=== PATIENT | female | born 1950 | race Caucasian/White ===

== ENCOUNTER 2019-12-14 08:21 | Outpatient (CLI) | payer OTHER, SELFPAY ==
--- NOTE | ~2019-12-14 | CT_ITS ---
EXAMINATION: CT pelvis wo con EXAM DATE: 12/14/2019 09:10 INDICATION: Groin swelling for 4 weeks, pain. TECHNIQUE: Spiral CT pelvis wo con was performed without contrast. Axial, coronal and sagittal imag es were reviewed. The dose-length product (DLP) for this examination was 562.52 mGy-cm. The exposur e was tailored according to patient size (auto mA exposure control), and iterative reconstruction ( IR) was used as additional dose reduction technique. There is no prior study for comparison. FINDINGS: There is right hip gamma nail. There is partial osseous fusion of the fracture line. Image d portion of hardware is intact. No osseous erosion. There is small right hip joint effusion. There is right sacral subacute insufficiency fracture. Patient has had hysterectomy. Bladder is unrem arkable. There is moderate amount of nonspecific mesenteric and retroperitoneal fat stranding which i s new compared to previous exam. IMPRESSION: 1. Moderate nonspecific mesenteric fat stranding. 2. Subacute right sacral insufficiency fracture. 3. Surgically fixed right trochanteric fracture, incomplete osseous fusion. Small right hip joint ef fusion. Reviewed, dictated and finalized at location B. 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 Moderate nonspecific mesenteric fat stranding. 2. Subacute right sacral insufficiency fracture. 3. Surgically fixed right trochanteric fracture, incomplete osseous fusion. Sm all right hip joint effusion.
== END 2019-12-14 08:22 | disposition home or self-care (01) ==
PROVIDERS: PCP Internal Medicine; Visit Provider Internal Medicine
DX: R10.2 Pelvic and perineal pain (principal); S72.101D Unspecified trochanteric fracture of right femur, subsequent encounter for closed fracture with routine healing; X58.XXXD Exposure to other specified factors, subsequent encounter
CPT/HCPCS: 72192

== ENCOUNTER 2020-07-04 14:07 | Outpatient (CLI) | payer OTHER, SELFPAY ==
--- NOTE | 2020-07-04 14:49 | ECG_ITS ---
Measurements Intervals [place] Rate: 61 P: 55 AK: 207 QRS: 2 QRSD: 85 T: 40 QT: 373 QTc: 379 Interpretive Statements SINUS RHYTHM NORMAL ECG Electronically Signed On 07-04-2020 15:01:45 CDT by Luis Miguel Iverson D.O.
[2020-07-04 14:50] LABS: Anion Gap 7 mmol/L (8-16); Blood Urea Nitrogen 15 mg/dL (7-17); Calcium 9.1 mg/dL (8.4-10.2); Carbon Dioxide 29 mmol/L (22-30); Chloride 101 mmol/L (98-107); Estimated Glomerular Filt Rate > 60; Glucose 178 mg/dL (65-105); Potassium 4.2 mmol/L (3.4-5.0); Sodium 137 mmol/L (137-145)
== END 2020-07-04 14:08 | disposition home or self-care (01) ==
PROVIDERS: PCP Internal Medicine; Visit Provider Orthopaedic Surgery
DX: Z01.812 Encounter for preprocedural laboratory examination (principal); E11.9 Type 2 diabetes mellitus without complications; M65.30 Trigger finger, unspecified finger
CPT/HCPCS: 36415; 80048; 93005

== ENCOUNTER 2020-08-01 10:37 | Outpatient (CLI) | payer OTHER, SELFPAY ==
--- NOTE | ~2020-08-01 | MM_ITS ---
EXAMINATION: MM screening toni BI w parisa HISTORY: Screening mammogram TECHNIQUE: Craniocaudal and mediolateral oblique 3-D tomosynthesis images were obtained and synthetic 2-D images were generated. CAD analysis was submitted and interpreted. COMPARISON: 08/11/2018, 03/15/2012 bilateral digital screening mammogram examinations BREAST PARENCHYMAL COMPOSITION: There are scattered areas of fibroglandular density. FINDINGS: There is no evidence of suspicious mass, calcification, or architectural distortion to sugg est malignancy in either breast. There has been no suspicious interval change. IMPRESSION: 1. No mammographic evidence of malignancy. 2. Recommend routine screening mammography in one year. BI-RADS Category 1: Negative Reviewed, dictated and finalized at location A.
== END 2020-08-01 10:38 | disposition home or self-care (01) ==
LOC: ANHIMG 10:38
PROVIDERS: PCP Internal Medicine; Visit Provider Internal Medicine
DX: Z12.31 Encounter for screening mammogram for malignant neoplasm of breast (principal)
CPT/HCPCS: 77063; 77067

== ENCOUNTER 2020-08-01 15:42 | Outpatient (CLI) | payer OTHER, SELFPAY ==
--- NOTE | ~2020-08-01 | XR_ITS ---
EXAMINATION: XR tibia fibula RT 2V DATE: 08/01/2020 16:13 INDICATION: Right lower limb pain. TECHNIQUE: 2 views of right tibia and fibula were obtained. COMPARISON: None. FINDINGS: Bone alignment is normal. No fracture. There is diffuse osteopenia. There is plate and scre w fixation of distal femur. There is mild right knee osteoarthritis. IMPRESSION: 1. Mild right knee osteoarthritis. Reviewed, dictated and finalized at location A.
--- NOTE | ~2020-08-01 | XR_ITS ---
XR knee RT 3V 08/01/2020 16:13 Indication: Right knee pain Procedure: 3 views right knee Comparison: No prior studies for comparison. Findings: There is moderate tricompartment osteoarthritis. There is chondrocalcinosis. Osteopenia. Th ere is an intramedullary yazmin in the distal femur with 2 distal interlocking screws. Impression: 1: Moderate osteoarthritis of the right knee. Reviewed, dictated and finalized at location B. Impression: 1: Moderate osteoarthritis of the right knee.
== END 2020-08-01 15:43 | disposition home or self-care (01) ==
PROVIDERS: PCP Internal Medicine; Visit Provider Internal Medicine
DX: M17.11 Unilateral primary osteoarthritis, right knee (principal)
CPT/HCPCS: 73562; 73590

== ENCOUNTER 2020-10-24 02:16 | Outpatient (CLI) | payer OTHER, SELFPAY ==
[2020-10-24 18:46] LABS: SARS-CoV-2 RNA PCR Negative
== END 2020-10-24 02:17 | disposition home or self-care (01) ==
LOC: ANHCOVIDDT 02:16
PROVIDERS: PCP Internal Medicine; Visit Provider Internal Medicine Gastroenterology
DX: Z01.818 Encounter for other preprocedural examination (principal); Z20.828 Contact with and (suspected) exposure to other viral communicable diseases
CPT/HCPCS: 87635; C9803; U0003

== ENCOUNTER 2020-10-27 01:23 | Day surgery (SDC) | payer OTHER, SELFPAY ==
[2020-10-20 15:53] VITALS: BMI 27.3
[2020-10-27 09:09] VITALS: BP 151/70; PULSE 75; RESP 20; TEMP 36.1; O2SAT 98; BMI 27.4
[2020-10-27] MEDS: LACTATED RINGERS 1,000 ML 150 ML IV CONT (09:25)
[2020-10-27 09:30] LABS: Glucose Point of Care 114 (65-105)
--- NOTE | 2020-10-27 09:44 | WPDANESEPPF ---
Anes - Initial Pre Proc Eval Procedure: Operation Date: 10/27/20 10:00 Proposed Procedures p Screening Colonoscopy - Sreedhar Aranda MD Date/Time: 10/27/20 09:44 Surgeon: Sreedhar Aranda MD Pre Op Diagnosis: Neoplasm Screening Patient Data Age: 70 Gender: F Height: 5 ft 7 in Weight: 79.6 kg Last Vital Signs Temp 36.1 C L 10/27/20 09:09 Pulse 75 10/27/20 09:09 Resp 20 10/27/20 09:09 BP 151/70 H 10/27/20 09:09 Pulse Ox 98 10/27/20 09:09 Allergies Allergy/AdvReac Type Severity Reaction Status Date / Time atorvastatin Allergy Intermediate Other Verified 10/27/20 09:08 rosuvastatin Allergy Intermediate Other Verified 10/27/20 09:08 Home Medications Medication Instructions Recorded Confirmed Type aspirin 81 mg tablet,delayed 81 mg PO DAILY 11/28/19 10/20/20 History release blood sugar diagnostic #10 each 11/28/19 08/25/20 History multivitamin,zy-kbmu-zclkisxa 1 tablet PO DAILY 11/28/19 10/20/20 History simethicone 125 mg chewable tablet 125 mg PO TID PRN 11/28/19 10/20/20 History dapagliflozin 10 mg tablet 10 mg PO DAILY #30 tablet 12/14/19 10/20/20 Rx glipizide 5 mg tablet 5 mg PO .COMPLEX #90 tablet 08/25/20 10/20/20 Rx hydrocodone 5 mg-acetaminophen 325 1 tablet PO Q8H PRN #60 tablet 08/25/20 10/20/20 Rx mg tablet irbesartan 300 1 tablet PO DAILY #90 tablet 08/28/20 10/20/20 Rx mg-hydrochlorothiazide 12.5 mg tablet peg 3350 240 gram-electrolytes 240 ml PO Q10M #4000 ml 09/04/20 Rx 22.72 gram-6.72 g-5.84 g powdr for soln Elderberry 2 wafer PO DAILY 10/20/20 10/20/20 History Tumeric 1,200 mg PO DAILY 10/20/20 10/20/20 History biotin 2 wafer PO DAILY 10/20/20 10/20/20 History calcium 2 wafer PO DAILY 10/20/20 10/20/20 History magnesium 1 wafer PO DAILY 10/20/20 10/20/20 History sertraline 100 mg PO DAILY 10/20/20 10/20/20 History Laboratory Tests 10/27/20 09:27 POC Capillary Glucose 114 mg/dl H mg/dl (65-105) Patient hx anesthesia problems: none Family hx anesthesia problems: none PMFSH Past Medical History Medical History (Updated 04/25/20 @ 14:05 by Mike Slater APRN) Femur fracture, right Family History Family History Mother Family history of obesity Family history of osteoporosis Depression Family history of migraine headaches Family history of cataracts Cerebrovascular accident Family history of arthritis Family history of diabetes mellitus in first degree relative Family history of heart disease in male family member before age 55 Diabetes mellitus Father Family history of obesity Depression Family history of cataracts Family history of alcoholism Acute myocardial infarction, Onset Age: 73 Cerebrovascular accident Family history of arthritis Family history of diabetes mellitus in first degree relative Family history of heart disease in male family member before age 55 Patient's father is Sibling Family history of obesity Family history of blood dyscrasia Family history of mental disorder Depression Family history of migraine headaches Family history of transient ischemic attacks Asthma Family history of liver disease Family history of hepatitis Family history of arthritis Family history of diabetes mellitus in first degree relative Family history of heart disease in male family member before age 55 Diabetes mellitus Grandparent Family history of obesity Family history of blood dyscrasia Family history of mental disorder Family history of cataracts Family history of arthritis Family history of Alzheimer's disease Diabetes mellitus Social History Social History Years smoked: 15 Smoking status: Former smoker Tobacco type: cigarettes Smoking end date: 11/14/90 Alcohol intake: never Substance use: never Substance use type
--- NOTE | 2020-10-27 10:19 | PM.HPGS ---
History of Present Illness History of Present Illness Consent: Risks, benefits, and alternatives have been discussed and questions answered. Patient agrees to proceed with procedure. Chief complaint: Neoplasm Screening Narrative: Nakia Foster is a 70 year old female with last colonoscopy about 5 years ago. Review of Systems Constitutional: Constitutional: Denies headache(s) and Denies weakness Eyes: Eyes: Denies blurry vision ENT: Reports Normal hearing present, Denies headache(s) and Denies neck pain Cardiovascular: Cardiovascular: Denies chest pain and Denies dyspnea Respiratory: Respiratory: Denies dyspnea Gastrointestinal: Gastrointestinal: Reports no additional gastrointestinal complaints Genitourinary: Genitourinary: Denies dysuria Musculoskeletal: Musculoskeletal: Denies neck pain Integumentary/Breasts: Skin/Breast: Denies dry skin Neurologic: Reports Normal hearing present, Denies headache(s) and Denies weakness Psychiatric: Psychiatric: Denies anxiety Endocrine: Endocrine: Denies change in body appearance Hematologic/Lymphatic: Hematologic/Lymphatic: Denies easy bleeding Allergic/Immunologic: Allergic/Immunologic: Denies urticaria PMFSH Past Medical History Medical History (Updated 10/27/20 @ 10:19 by Sreedhar Aranda MD) Adenomatous colon polyp Femur fracture, right Family History Family History Mother Family history of obesity Family history of osteoporosis Depression Family history of migraine headaches Family history of cataracts Cerebrovascular accident Family history of arthritis Family history of diabetes mellitus in first degree relative Family history of heart disease in male family member before age 55 Diabetes mellitus Father Family history of obesity Depression Family history of cataracts Family history of alcoholism Acute myocardial infarction, Onset Age: 73 Cerebrovascular accident Family history of arthritis Family history of diabetes mellitus in first degree relative Family history of heart disease in male family member before age 55 Patient's father is Sibling Family history of obesity Family history of blood dyscrasia Family history of mental disorder Depression Family history of migraine headaches Family history of transient ischemic attacks Asthma Family history of liver disease Family history of hepatitis Family history of arthritis Family history of diabetes mellitus in first degree relative Family history of heart disease in male family member before age 55 Diabetes mellitus Grandparent Family history of obesity Family history of blood dyscrasia Family history of mental disorder Family history of cataracts Family history of arthritis Family history of Alzheimer's disease Diabetes mellitus Social History Social History Years smoked: 15 Smoking status: Former smoker Tobacco type: cigarettes Smoking end date: 11/14/90 Alcohol intake: never Substance use: never Substance use type: does not use Living arrangements: alone Spiritual care concerns: No Meds Home Medications and Allergies Home Medications Medication Instructions Recorded Confirmed Type aspirin 81 mg tablet,delayed 81 mg PO DAILY 11/28/19 10/20/20 History release blood sugar diagnostic #10 each 11/28/19 08/25/20 History multivitamin,eh-ybjx-yjtatqcm 1 tablet PO DAILY 11/28/19 10/20/20 History simethicone 125 mg chewable tablet 125 mg PO TID PRN 11/28/19 10/20/20 History dapagliflozin 10 mg tablet 10 mg PO DAILY #30 tablet 12/14/19 10/20/20 Rx glipizide 5 mg tablet 5 mg PO .COMPLEX #90 tablet 08/25/20 10/20/20 Rx hydrocodone 5 mg-acetaminophen 325 1 tablet PO Q8H PRN #60 tablet 08/25/20 10/20/20 Rx mg tablet irbesartan 300 1 tablet PO DAILY #90 tablet 08/28/20 10/20/20 Rx mg-hydrochloroth
[2020-10-27 10:43] VITALS: BP 115/58; PULSE 67; RESP 16; O2SAT 98
[2020-10-27 10:53] VITALS: BP 119/62; PULSE 66; RESP 19; O2SAT 99
[2020-10-27 11:03] VITALS: BP 143/79; PULSE 65; RESP 16; O2SAT 100
== END 2020-10-27 11:10 | disposition home or self-care (01) ==
PROVIDERS: PCP Internal Medicine; Visit Provider Internal Medicine Gastroenterology
PROC: 0DJD8ZZ Inspection of Lower Intestinal Tract, Via Natural or Artificial Opening Endoscopic (ICD-10-PCS; CPT 45378; principal; 2020-10-27 10:00)
DX: Z12.11 Encounter for screening for malignant neoplasm of colon (principal); Z86.010 Personal history of colon polyps; K64.8 Other hemorrhoids; Z79.82 Long term (current) use of aspirin; Z87.891 Personal history of nicotine dependence
CPT/HCPCS: G0105; J2704; J7120

== ENCOUNTER 2020-11-03 18:14 | Outpatient (CLI) | payer OTHER, SELFPAY ==
--- NOTE | ~2020-11-03 | XR_ITS ---
XR knee LT 3V 11/03/2020 18:46 Indication: Left knee pain Procedure: 3 views left knee Comparison: No prior studies for comparison. Findings: There is a left total knee arthroplasty. Small joint effusion. No acute fracture or traumat ic malalignment. Osteopenia. Impression: 1: No acute fracture. Reviewed, dictated and finalized at location A. ILER Impression: 1: No acute fracture.
--- NOTE | ~2020-11-03 | XR_ITS ---
[[id number] ] INDICATION: Right rib pain TECHNIQUE: Frontal projection of the upper right ribs, frontal projection of the lower right ribs, ob lique projection of all the right ribs, frontal inspiratory chest x-ray for interpretation. FINDINGS: There are no displaced rib fractures identified. There are no soft tissue abnormality see n. The lungs are clear. IMPRESSION: 1:No displaced rib fractures. Reviewed, dictated and finalized at location A. 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
== END 2020-11-03 18:15 | disposition home or self-care (01) ==
PROVIDERS: PCP Internal Medicine; Visit Provider Internal Medicine
DX: M25.569 Pain in unspecified knee (principal); R07.81 Pleurodynia
CPT/HCPCS: 71101; 73562

== ENCOUNTER 2021-03-25 09:14 | Outpatient (CLI) | payer OTHER, SELFPAY ==
--- NOTE | ~2021-03-25 | XR_ITS ---
EXAMINATION: XR hip LT min 2V DATE: 03/25/2021 09:39 INDICATION: Left lower quadrant abdominal pain. TECHNIQUE: 2 views of left hip were obtained. COMPARISON: Left hip radiographs 10/11/2011 FINDINGS: Bone alignment is normal. No fracture. There is mild left hip osteoarthritis. IMPRESSION: 1. Mild left hip osteoarthritis. Reviewed, dictated and finalized at location B.
--- NOTE | ~2021-03-25 | XR_ITS ---
EXAMINATION: XR pelvis 1-2V DATE: 03/25/2021 09:39 INDICATION: Left lower quadrant abdominal pain. TECHNIQUE: An anteroposterior view of the pelvis was obtained. COMPARISON: Right hip radiographs 08/11/2011 FINDINGS: There is an old healed fracture proximal femur with internal fixation with antegrade intram edullary yazmin and femoral head/neck screw. No acute fracture. There is moderate right hip osteoarthrit is and mild left hip osteoarthritis. There is mild lumbar spondylosis. IMPRESSION: 1. Moderate right hip osteoarthritis and mild left hip osteoarthritis. Reviewed, dictated and finalized at location B.
== END 2021-03-25 09:15 | disposition home or self-care (01) ==
PROVIDERS: PCP Internal Medicine; Visit Provider Internal Medicine
DX: M16.0 Bilateral primary osteoarthritis of hip (principal)
CPT/HCPCS: 72170; 73502

== ENCOUNTER 2021-05-22 14:30 | Outpatient (CLI) | payer OTHER, SELFPAY ==
--- NOTE | ~2021-05-22 | US_ITS ---
EXAMINATION: US venous doppler [facility] DATE: 05/22/2021 16:36 INDICATION: Left lower limb swelling. TECHNIQUE: Grayscale ultrasound images without and with compression and Doppler ultrasound images of the left lower extremity veins were obtained. COMPARISON: Ultrasound 03/16/2012 FINDINGS: The visualized portions of left common femoral vein, profunda (deep) femoral vein, femoral vein, popl iteal vein, peroneal veins, posterior tibial veins, and greater saphenous vein outflow are patent. IMPRESSION: 1. No deep venous thrombosis. Reviewed, dictated and finalized at location A.
== END 2021-05-22 14:31 | disposition home or self-care (01) ==
LOC: ANHIMG 14:38
PROVIDERS: PCP Internal Medicine; Visit Provider Physician Assistant Surgical
DX: M79.89 Other specified soft tissue disorders (principal)
CPT/HCPCS: 93971

== ENCOUNTER 2021-07-28 17:18 | Outpatient (CLI) | payer OTHER, SELFPAY ==
--- NOTE | ~2021-07-28 | XR_ITS ---
XR shoulder RT min 2V DATE: 07/28/2021 17:45 INDICATION: Chronic right shoulder pain. No injury. History of osteoporosis. TECHNIQUE: 4 views COMPARISON: None FINDINGS: There is diffuse osteopenia. There is irregularity and osteoarthritic spurring and subcortical cyst formation at the right glenohu meral joint. Probable old anterolateral right sixth and seventh rib fracture deformities. Degenerative change of the cervical and thoracic spine. No abnormal right shoulder calcification. IMPRESSION: Prominent osteoarthritic change at right glenohumeral joint Osteopenia Reviewed, dictated and finalized at location A.
== END 2021-07-28 17:19 | disposition home or self-care (01) ==
LOC: ANHIMG 17:20
PROVIDERS: PCP Internal Medicine; Visit Provider Internal Medicine
DX: M85.821 Other specified disorders of bone density and structure, right upper arm (principal)
CPT/HCPCS: 73030

== ENCOUNTER → 2021-11-12 01:50 | Outpatient (CLI) | payer OTHER, SELFPAY ==
[2021-11-12 20:33] LABS: SARS-CoV-2 RNA PCR Positive
== END ==
PROVIDERS: PCP Internal Medicine; Visit Provider Nurse Practitioner
DX: U07.1 COVID-19 (principal)
CPT/HCPCS: C9803; U0003; U0005

== ENCOUNTER → 2022-01-20 12:09 | Outpatient (CLI) | payer OTHER, SELFPAY ==
--- NOTE | ~2022-01-20 | XR_ITS ---
EXAMINATION: XR chest 2V DATE: 01/20/2022 12:26 INDICATION: Cough, unspecified. TECHNIQUE: Frontal and lateral views of the chest were obtained. COMPARISON: Chest single view 05/22/2019, chest CT 07/19/2013 FINDINGS: The chest demonstrates clear lungs without pneumonia, pleural effusion, or pneumothorax. Th e heart size is normal. Calcified right hilar lymph nodes are consistent with old granulomatous disea se. IMPRESSION: 1. No acute cardiopulmonary disease. Reviewed, dictated and finalized at location A. 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
== END ==
PROVIDERS: PCP Nurse Practitioner; Visit Provider Nurse Practitioner
DX: R05.9 Cough, unspecified (principal)
CPT/HCPCS: 71046

== ENCOUNTER → 2022-01-21 02:19 | Outpatient (CLI) | payer OTHER, SELFPAY ==
[2022-01-21 11:03] LABS: SARS-CoV-2 RNA PCR Negative
== END ==
PROVIDERS: PCP Internal Medicine; Visit Provider Nurse Practitioner
DX: R05.9 Cough, unspecified (principal); Z20.822 Contact with and (suspected) exposure to COVID-19
CPT/HCPCS: C9803; U0003; U0005

== ENCOUNTER 2022-02-19 13:31 | Outpatient (CLI) | payer OTHER, SELFPAY | END 2022-02-19 13:32 | disposition home or self-care (01) | LOC: ANHLAB 13:41 | PROVIDERS: PCP Internal Medicine; Visit Provider Internal Medicine | DX: B99.9 Unspecified infectious disease (principal); B95.62 Methicillin resistant Staphylococcus aureus infection as the cause of diseases classified elsewhere | CPT/HCPCS: 87081 ==

== ENCOUNTER → 2022-07-08 16:19 | Outpatient (CLI) | payer OTHER, SELFPAY ==
--- NOTE | ~2022-07-08 | DEXA_ITS ---
Bone Density Report Name: HOLLIE GRANADO Age: 72 Sex: Female Ethnicity: White Date of : 1950 Indication: postmenopausal; screening for osteoporosis; height loss; prior fracture; hysterectomy; Referring Provider: DAVID DESIR Study: Bone densitometry was performed. Exam Date: July 08, 2022 Accession number: [id number] Bone Density: Region BMD T-score Z-score Classification AP Spine (L1-L4) 0.937 -1.0 1.2 Normal Femoral Neck (Left) 0.483 -3.3 -1.4 Osteoporosis Total Hip (Left) 0.540 -3.3 -1.7 Osteoporosis World Health Organization criteria for BMD impression classify patients as: Normal (T-score at or above -1.0), Osteopenia (T-score between -1.0 and -2.5), or Osteoporosis (T-score at or below -2.5). Previous Exams: Region Exam Age BMD T-score BMD Change BMD Change Date g/cm2 vs Baseline vs Previous AP Spine(L1-L4) 07/08/2022 72 0.937 -1.0 -0.056 -0.056 01/04/2011 60 0.993 -0.5 Total Hip(Left) 07/08/2022 72 0.540 -3.3 -0.305 -0.305 01/04/2011 60 0.845 -0.8 *Denotes significance at 95% confidence level, LSC for AP Spine = 0.022 g/cm2, LSC for Total Hip = 0.027 g/cm2 Clinical Information Provided by Patient: Have had a previous hip or vertebral fracture Has had a low trauma fracture Has used the following medications: Vitamin D, MTV Has the following medical conditions: Hysterectomy Patient maximum height was 69.0 Menopause Age: 45 No regular weight bearing exercise Drinks caffeinated beverages Onset of menses at age 13 Number of children 3 Impression: The patient has established osteoporosis, based on the Left Total Hip T-score and the existence of a prior fracture. The patient has risk factors, including: previous fracture. No significant bone loss was observed. Discussion: HIGH RISK OF FRACTURE. BONE DENSITY IS UNDESIRABLY LOW AT ONE OR MORE SKELETAL SITES, CONSISTENT WITH POSTMENOPAUSAL OSTEOPOROSIS. This patient's lowest T-score, in a patient who has previously fractured, meets the World Health Organization's (WHO) criteria for severe osteoporosis. In untreated patients, the risk of osteoporotic fracture increases approximately two-fold for each 1.0 SD decrease in T-score. Low bone density is not the only risk factor for fracture; also consider factors such as patient's age, frailty or poor health, risk of falling, risk of injury, previous osteoporotic fracture, family history of osteoporosis, cigarette smoking, low body weight, etc. Not everyone with low bone mineral density has osteoporosis; osteomalacia and other metabolic bone disorders should also be considered. Patients who have osteoporosis should be evaluated
== END ==
PROVIDERS: PCP Internal Medicine
DX: M81.0 Age-related osteoporosis without current pathological fracture (principal)
CPT/HCPCS: 77080

== ENCOUNTER 2022-08-26 09:24 | Outpatient (CLI) | payer OTHER, SELFPAY ==
--- NOTE | ~2022-08-26 | XR_ITS ---
EXAMINATION: XR toe 1st LT min 2V INDICATION: Left first toe pain, initial encounter TECHNIQUE: Four views of the left first toe were obtained. COMPARISON: None available FINDINGS: There is an acute, traumatic, oblique fracture of the first distal phalanx which extends fr om the mid shaft dorsally to the plantar proximal base. Soft tissue swelling surrounds the fracture. There is mild osteoarthritis of multiple interphalangeal joints. No additional fracture is identified . IMPRESSION: 1. Oblique essentially nondisplaced fracture of the first distal phalanx which could be an open fract ure given its location. Reviewed, dictated and finalized at location F. IMPRESSION: 1. Oblique essentially nondisplaced fracture of the first distal phalanx which could be an open fracture given its location.
== END 2022-08-26 09:25 ==
PROVIDERS: Visit Provider Nurse Practitioner
DX: S92.425A Nondisplaced fracture of distal phalanx of left great toe, initial encounter for closed fracture (principal); X58.XXXA Exposure to other specified factors, initial encounter
CPT/HCPCS: 73660

== ENCOUNTER 2022-12-06 18:08 | Outpatient (CLI) | payer OTHER, SELFPAY ==
--- NOTE | ~2022-12-06 | XR_ITS ---
EXAM: XR foot LT min 3V DATE: 12/06/2022 18:29 HISTORY: M79.672 - Pain FOR 5 DAYS AFTER TWISTING FOOT, PAIN LATERAL . COMPARISON: None available. FINDINGS: Decreased mineralization. No fracture or dislocation. No lytic or blastic lesion. Scattere d mild degenerative changes. Achilles and plantar enthesopathy. Pes planus. Old fracture fragments ve rsus heterotopic ossification along the dorsal aspect of the anterior talus. No erosion or periosteal change. Soft tissues within normal limits. IMPRESSION: No acute osseous finding in the left foot. Reviewed, dictated and finalized at location K. 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
== END 2022-12-06 18:09 | disposition home or self-care (01) ==
PROVIDERS: PCP Nurse Practitioner; Visit Provider Nurse Practitioner
DX: M79.672 Pain in left foot (principal)
CPT/HCPCS: 73630

== ENCOUNTER 2023-08-26 12:25 | Emergency (ER) | payer OTHER, SELFPAY ==
--- NOTE | ~2023-08-26 | CT_ITS ---
EXAMINATION: CT brain wo con INDICATION: Head injury COMPARISON: 06/01/2019 TECHNIQUE: Standard unenhanced head CT. The dose-length product (DLP) was 605.33 mGy-cm. The mA was a djusted according to patient size. Iterative reconstruction technique was employed. FINDINGS: No acute intraparenchymal hemorrhage. No evidence of mass lesion. No evidence of acute infa rction. There is mild periventricular and subcortical hypodensity probably related to small vessel is chemic disease. There is mild prominence of the sulci and ventricles related to cerebral atrophy. Int racranial calcified cerebral atherosclerosis is noted. No extra-axial collections. No mass effect or midline shift. Changes in the globes are likely from ocular lens surgery. There are comminuted fractu res of the nasal bones. There is minimal opacification of the ethmoidal air cells. There is a midline frontal scalp hematoma. IMPRESSION: 1. No acute intracranial abnormality. 2. Age related findings. 3. Comminuted nasal bone fractures. Reviewed, dictated and finalized at location B.
--- NOTE | ~2023-08-26 | CT_ITS ---
EXAMINATION: CT facial & cervical spine wo DATE: 08/26/2023 13:26 INDICATION: Head injury. Neck pain. TECHNIQUE: Computed tomography (CT) of the maxillofacial region and cervical spine was performed with out intravenous contrast. Automated exposure control and iterative reconstruction technique were empl oyed. The dose-length product was 387.95 mGy-cm. COMPARISON: CT cervical spine 05/22/2019, head CT 05/22/2019 FINDINGS: MAXILLOFACIAL CT: There is frontal scalp soft tissue swelling. There are likely changes of ocular lens replacement surg eries. There are fractures of the nasal bones and nasal processes of maxilla. There is rightward lane ation of the nasal septum. There is a fracture of the nasal septum. There is mild septal thickening i n the paranasal sinuses. The mastoid air cells are normal. CERVICAL SPINE CT: There is a bleb at right lung apex. There is 2 mm anterolisthesis of C7 on T1. There is a chronic com pression fracture of T2. There is severely decreased disc height from C4-C5 through C6-C7. C1 ring is ununited anteriorly and posteriorly, which is chronic. The following disc levels are specifically di scussed: C2-C3: There is no uncovertebral joint osteoarthritis. There is severe bilateral facet joint osteoart hritis. There is no neural foraminal stenosis. There is no central canal stenosis. C3-C4: There is mild left uncovertebral joint osteoarthritis. There is severe right and mild left fac et joint osteoarthritis. There is no neural foraminal stenosis. There is no central canal stenosis. C4-C5: There is severe right and moderate left uncovertebral joint osteoarthritis. There is severe bi lateral facet joint osteoarthritis. There is mild lateral neural foraminal stenosis. There is mild ce ntral canal stenosis. C5-C6: There is severe bilateral uncovertebral joint osteoarthritis. There is severe bilateral facet joint osteoarthritis. There is mild bilateral neural foraminal stenosis. There is mild central canal stenosis. C6-C7: There is severe bilateral uncovertebral joint osteoarthritis. There is moderate bilateral face t joint osteoarthritis. There is mild bilateral neural foraminal stenosis. There is mild central funmi l stenosis. C7-T1: There is no uncovertebral joint osteoarthritis. There is severe bilateral facet joint osteoart hritis. There is mild bilateral neural foraminal stenosis. There is no central canal stenosis. IMPRESSION: 1. Fractures of the nasal bones, nasal processes of maxilla, and nasal septum. 2. Severe cervical spondylosis. Reviewed, dictated and finalized at location A.
[2023-08-26 13:02] VITALS: BP 124/55; PULSE 70; RESP 16; TEMP 36.3; O2SAT 100
[2023-08-26 15:54] VITALS: BP 149/67; PULSE 95; RESP 18; O2SAT 99
[2023-08-26] MEDS: HYDROcodone/acetaminophen (*CRX) 5-325 MG TABLET 1 TAB PO (16:50)
[2023-08-26 16:51] VITALS: BP 149/59; PULSE 78; RESP 18; O2SAT 100
--- NOTE | 2023-08-26 17:04 | ED.FALL ---
HPI - Fall General Chief Complaint: Fall Stated Complaint: fall Time Seen by Provider: 08/26/23 15:19 Source: patient Mode of arrival: ambulatory Limitations: no limitations History of Present Illness HPI Narrative: This is a 73-year-old female that presents to the emergency department after a ground-level fall today. Reports she tripped over a curb and fell forward. She did not lose consciousness. She did hit her head. Reports laceration and contusion to the nose. Also reports some neck pain. She is not on a blood thinner. Denies visual changes, vomiting, numbness, or weakness. Related Data Home Medications Medication Instructions Recorded Confirmed aspirin 81 mg tablet,delayed 81 mg PO DAILY 11/28/19 07/13/23 release (Adult Aspirin Regimen) blood sugar diagnostic (Contour #10 ea 11/28/19 07/13/23 Next Test Strips) simethicone 125 mg chewable tablet 125 mg PO TID PRN OTHER 11/28/19 07/13/23 (Gas-X Extra Strength) acetaminophen 500 mg tablet 500 mg PO Q6H PRN 05/08/21 07/13/23 (Tylenol Extra Strength) valacyclovir 1 gram tablet 1,000 mg PO Q8H PRN 07/13/23 07/13/23 (Valtrex) Allergies Allergy/AdvReac Type Severity Reaction Status Date / Time atorvastatin Allergy Intermediate Other Verified 08/26/23 12:26 rosuvastatin Allergy Intermediate Other Verified 08/26/23 12:26 Mfgjgym-MCF-DyE Reductase Allergy Unknown Unknown Verified 08/26/23 12:26 Inhibitor Review of Systems Review of Systems: CONSTITUTIONAL: Denies fever EYES: Denies visual changes GASTROINTESTINAL: Denies vomiting MUSCULOSKELETAL: Denies back pain NEUROLOGIC: Denies numbness, or weakness. All systems reviewed & are unremarkable except as noted in HPI and below PMFSH Past Medical History Medical History Adenomatous colon polyp AVN (avascular necrosis of bone) (~2021) Femur fracture, right Vitamin D deficiency, unspecified Surgical History Surgical History History of left shoulder replacement Hx of gastric bypass Family History Family History Mother Family history of obesity Family history of osteoporosis Depression Family history of migraine headaches Family history of cataracts Cerebrovascular accident Family history of arthritis Family history of diabetes mellitus in first degree relative Family history of heart disease in male family member before age 55 Diabetes mellitus Father Family history of obesity Depression Family history of cataracts Family history of alcoholism Acute myocardial infarction, Onset Age: 73 Cerebrovascular accident Family history of arthritis Family history of diabetes mellitus in first degree relative Family history of heart disease in male family member before age 55 Patient's father is Sibling Family history of obesity Family history of blood dyscrasia Family history of mental disorder Depression Family history of migraine headaches Family history of transient ischemic attacks Asthma Family history of liver disease Family history of hepatitis Family history of arthritis Family history of diabetes mellitus in first degree relative Family history of heart disease in male family member before age 55 Diabetes mellitus Grandparent Family history of obesity Family history of blood dyscrasia Family history of mental disorder Family history of cataracts Family history of arthritis Family history of Alzheimer's disease Diabetes mellitus Social History Social History Smoking packs per day: 1 Smoking cigarettes per day: 20.0 Years smoked: 30 Smoking pack-years: 30.00 Smoking status: Former smoker Tobacco type: cigarettes Second hand tobacco smoke exposure: Yes Smoking end date: 11/14/90 Alcohol in
[2023-08-26] MEDS: TETANUS,DIPHTHERIA,AC PERTUSSIS ADULT (0.5 ML) BOOSTRIX IM (17:09)
[2023-08-26 18:35] VITALS: BP 144/64; PULSE 75; O2SAT 98
== END 2023-08-26 18:50 | disposition home or self-care (01) ==
PROVIDERS: Emergency Provider Physician Assistant; PCP Family Medicine
DX: S02.2XXA Fracture of nasal bones, initial encounter for closed fracture (principal); S01.21XA Laceration without foreign body of nose, initial encounter; Z23 Encounter for immunization; E55.9 Vitamin D deficiency, unspecified; Z98.84 Bariatric surgery status; Z86.010 Personal history of colon polyps; Z87.891 Personal history of nicotine dependence; Z79.82 Long term (current) use of aspirin; W10.1XXA Fall (on)(from) sidewalk curb, initial encounter
CPT/HCPCS: 12011; 70450; 70486; 72125; 90471; 90715; 99284; A9270; L0140

== ENCOUNTER 2023-09-20 02:59 | Day surgery (SDC) | payer OTHER, SELFPAY ==
[2023-09-08 13:28] VITALS: BMI 27.5
--- NOTE | 2023-09-16 11:43 | SUR.PREOP ---
Patient called regarding upcoming procedure. Message left on patient's voicemail regarding appointment times. Callback number given.
[2023-09-20 10:06] VITALS: BP 136/63; PULSE 84; RESP 18; TEMP 36.2; O2SAT 99; BMI 26.6
[2023-09-20] MEDS: LACTATED RINGERS 1,000 ML 150 ML IV CONT (10:10)
[2023-09-20 10:27] LABS: Glucose Point of Care 100 mg/dl (65-105)
--- NOTE | 2023-09-20 10:51 | WPDANESEPPF ---
Anes - Initial Pre Proc Eval Procedure: Operation Date: 09/20/23 11:30 Proposed Procedures p Esophagogastroduodenoscopy - Sreedhar Aranda MD Date/Time: 09/20/23 10:51 Surgeon: Sreedhar Aranda MD Pre Op Diagnosis: GERD Patient Data Age: 73 Gender: F Height: 1.68 m Weight: 74.9 kg Last Vital Signs Temp 97.1 F L 09/20/23 10:06 Pulse 84 09/20/23 10:06 Resp 18 09/20/23 10:06 BP 136/63 09/20/23 10:06 Pulse Ox 99 09/20/23 10:06 O2 Del Method Room Air 09/20/23 10:06 Allergies Allergy/AdvReac Type Severity Reaction Status Date / Time atorvastatin Allergy Intermediate Other Verified 09/20/23 10:02 rosuvastatin Allergy Intermediate Other Verified 09/20/23 10:02 Jsahuos-DCL-VcH Reductase Allergy Unknown Unknown Verified 09/20/23 10:02 Inhibitor Home Medications Medication Instructions Recorded Confirmed Type blood sugar diagnostic (Contour #10 ea 11/28/19 09/08/23 History Next Test Strips) acetaminophen 500 mg tablet 500 mg PO Q6H PRN Pain 05/08/21 09/08/23 History (Tylenol Extra Strength) omeprazole 40 mg capsule,delayed 40 mg PO DAILY #30 caps 07/13/23 09/20/23 Rx release valacyclovir 1 gram tablet 1,000 mg PO Q8H PRN Cold Sores 07/13/23 09/08/23 History (Valtrex) cholecalciferol (vitamin D3) 250 250 mcg PO DAILY #90 tabs 07/15/23 09/20/23 Rx mcg (10,000 unit) tablet glipizide 5 mg tablet 5 mg PO BID #180 tabs 08/01/23 09/20/23 Rx irbesartan 300 1 tablet PO DAILY #90 tabs 08/01/23 09/20/23 Rx mg-hydrochlorothiazide 12.5 mg tablet famotidine 20 mg tablet See Rx Instructions .Route 08/02/23 09/20/23 Rx .COMPLEX #60 tabs semaglutide 0.25 mg or 0.5 mg (2 0.25 mg (0.368 mL) subcut WEEKLY 08/03/23 09/08/23 Rx mg/3 mL) subcutaneous pen injector #3 mL (Ozempic) hydrocodone 5 mg-acetaminophen 325 0.5 tablet PO HS pain 09/08/23 09/20/23 History mg tablet sertraline 100 mg tablet 100 mg PO DAILY #90 tabs 09/16/23 09/20/23 Rx Laboratory Tests 09/20/23 10:24 POC Capillary Glucose 100 mg/dl (65-105) Patient hx anesthesia problems: none Family hx anesthesia problems: none Results Review: All pre-operative results and documents have been reviewed as part of the pre-operative evaluation. [facility] Past Medical History Medical History (Updated 09/01/23 @ 12:04 by Sreedhar Aranda MD) Adenomatous colon polyp AVN (avascular necrosis of bone) (~2021) Epigastric pain Femur fracture, right Vitamin D deficiency, unspecified Surgical History Surgical History History of left shoulder replacement Hx of gastric bypass Family History Family History Mother Family history of obesity Family history of osteoporosis Depression Family history of migraine headaches Family history of cataracts Cerebrovascular accident Family history of arthritis Family history of diabetes mellitus in first degree relative Family history of heart disease in male family member before age 55 Diabetes mellitus Father Family history of obesity Depression Family history of cataracts Family history of alcoholism Acute myocardial infarction, Onset Age: 73 Cerebrovascular accident Family history of arthritis Family history of diabetes mellitus in first degree relative Family history of heart disease in male family member before age 55 Patient's father is Sibling Family history of obesity Family history of blood dyscrasia Family history of mental disorder Depression Family history of migraine headaches Family history of transient ischemic attacks Asthma Family history of liver disease Family history of hepatitis Family history of arthritis Family history of diabetes mellitus in first degree relative Family history of heart disease in male family member before age 55
--- NOTE | 2023-09-20 11:10 | WPDHPUPDATE1 ---
History and Physical Update Update Date/Time: 09/20/23 11:10 History and Physical has been reviewed, including an updated exam of the patient. There are NO changes in the patient's condition. Risks, benefits, and alternatives have been discussed and questions answered. Patient agrees to proceed with procedure.
[2023-09-20 11:25] VITALS: BP 98/49; PULSE 72; RESP 18; O2SAT 100
[2023-09-20 11:35] VITALS: BP 116/59; PULSE 71; RESP 22; O2SAT 99
[2023-09-20 11:45] VITALS: BP 136/62; PULSE 73; RESP 21; O2SAT 99
== END 2023-09-20 11:49 | disposition home or self-care (01) ==
PROVIDERS: PCP Family Medicine; Visit Provider Internal Medicine Gastroenterology
PROC: 0DJ08ZZ Inspection of Upper Intestinal Tract, Via Natural or Artificial Opening Endoscopic (ICD-10-PCS; CPT 43235; principal; 2023-09-20 11:30)
DX: K21.9 Gastro-esophageal reflux disease without esophagitis (principal); E55.9 Vitamin D deficiency, unspecified; Z87.891 Personal history of nicotine dependence; Z79.82 Long term (current) use of aspirin; Z79.891 Long term (current) use of opiate analgesic; Z79.84 Long term (current) use of oral hypoglycemic drugs; Z79.85 Long-term (current) use of injectable non-insulin antidiabetic drugs; Z98.84 Bariatric surgery status; Z82.49 Family history of ischemic heart disease and other diseases of the circulatory system
CPT/HCPCS: 43239; 82948; 88305; J2704; J7120

== ENCOUNTER 2023-10-24 16:11 | Outpatient (CLI) | payer OTHER, SELFPAY ==
[2023-10-24 16:59] LABS: Basophils Absolute Auto 0.1 K/mm3 (0.0-0.1); Basophils Percent Auto 0.9 % (0.2-1.2); Eosinophils Absolute Auto 0.2 K/mm3 (0-0.3); Eosinophils Percent Auto 2.1 % (0-4.4); Hematocrit 35.4 % (37.0-47.0); Hemoglobin 11.5 g/dL (12.0-15.0); Immature Granulocyte Absolute 0.03 K/mm3 (0.00-0.031); Immature Granulocyte Percent A 0.4 % (0-0.5); Lymphocytes Absolute Auto 2.42 K/mm3 (0.9-3.2); Lymphocytes Percent Auto 31.3 % (18.3-44.2); Mean Corpuscular HGB Conc 32.5 g/dl (32-36); Mean Corpuscular Hemoglobin 28.3 pg (26-34); Mean Corpuscular Volume 87.2 fl (80-100); Mean Platelet Volume 10.1 fl (7.4-10.4); Monocytes Absolute Auto 0.7 K/mm3 (0.1-0.6); Monocytes Percent Auto 8.5 % (2.6-8.5); Neutrophils Absolute Auto 4.4 K/mm3 (1.3-6.7); Neutrophils Percent Auto 56.8 % (45.5-73.1); Platelet Count Result 271 k/mm3 (150-375); Red Blood Count 4.06 M/mm3 (4.2-5.4); Red Cell Distribution Width 15.8 % (11.5-14.5); White Blood Count 7.7 K/mm3 (4.5-10.0)
[2023-10-24 18:31] LABS: Iron 54 ug/dL (37-170)
[2023-10-24 18:43] LABS: Percent Iron Saturation 13 % (20-50)
[2023-10-24 18:57] LABS: Alanine Aminotransferase 21 U/L (6-35); Albumin Level 4.5 g/dL (3.5-5.1); Alkaline Phosphatase 110 U/L (38-126); Anion Gap 12 mmol/L (8-16); Aspartate Amino Transferase 35 U/L (14-36); Bilirubin,Total 0.7 mg/dL (0.2-1.3); Blood Urea Nitrogen 19 mg/dL (7-17); Calcium 9.1 mg/dL (8.4-10.2); Carbon Dioxide 23 mmol/L (22-30); Chloride 104 mmol/L (98-107); Estimated Glomerular Filt Rate > 60; Glucose 101 mg/dL (65-110); Sodium 139 mmol/L (137-145)
[2023-10-24 19:05] LABS: Transferrin 324 mg/dL (206-381)
[2023-10-24 20:05] LABS: Folic Acid 8.2 ng/mL (2.76->20)
[2023-10-28 01:54] LABS: Methylmalonic Acid 275 nmol/L (87-318)
== END 2023-10-24 16:12 | disposition home or self-care (01) ==
PROVIDERS: PCP Family Medicine; Visit Provider Internal Medicine Hematology & Oncology
DX: D64.9 Anemia, unspecified (principal)
CPT/HCPCS: 36415; 80053; 82607; 82728; 82746; 83540; 83550; 83921; 84466; 85025

== ENCOUNTER 2024-01-03 08:51 | Outpatient (CLI) | payer OTHER, SELFPAY ==
--- NOTE | 2024-01-03 09:02 | ECG_ITS ---
Measurements Intervals [place] Rate: 65 P: 47 VA: 207 QRS: -3 QRSD: 78 T: 29 QT: 370 QTc: 387 Interpretive Statements SINUS RHYTHM COMPARED TO ECG 07/04/2020 14:56:07 NO SIGNIFICANT CHANGES Electronically Signed On 01-03-2024 15:35:58 [employer]EDSPREAD INSPECTOR by Cain Taylor M.D.
[2024-01-03 09:20] LABS: Hematocrit 34.3 % (37.0-47.0); Hemoglobin 10.7 g/dL (12.0-15.0)
[2024-01-03 09:41] LABS: Anion Gap 6 mmol/L (8-16); Blood Urea Nitrogen 16 mg/dL (7-17); Calcium 9.4 mg/dL (8.4-10.2); Carbon Dioxide 26 mmol/L (22-30); Chloride 104 mmol/L (98-107); Estimated Glomerular Filt Rate > 60; Glucose 136 mg/dL (65-110); Potassium 4.1 mmol/L (3.4-5.0); Sodium 136 mmol/L (137-145)
== END 2024-01-03 08:52 | disposition home or self-care (01) ==
LOC: ANHSURGERY 08:59
PROVIDERS: Anesthesiology; PCP Family Medicine; Visit Provider Orthopaedic Surgery
DX: E11.40 Type 2 diabetes mellitus with diabetic neuropathy, unspecified (principal); I10 Essential (primary) hypertension; D64.9 Anemia, unspecified
CPT/HCPCS: 36415; 80048; 85014; 85018; 93005

== ENCOUNTER 2024-01-11 01:56 | Day surgery (SDC) | payer OTHER, SELFPAY ==
[2023-12-27 10:44] VITALS: BMI 25.3
--- NOTE | 2023-12-27 11:16 | PC.NURSE ---
Report to the Outpatient Waiting Room, entrance under the green pavilion located off [facility], at time __7:00AM on date __01/09/24 . Planned Procedure Time: ___9:00AM . Time changes happen often and if your time is changed the preop area will call you the afternoon before. - You and your visitor will be asked to self-screen and do not enter if you have any COVID symptoms. - A mask is optional within the hospital at this time. Patients may have clear liquids (water, carbonated beverages, clear teas, apple juice) until 3 hours prior to surgery with a maximum of 20 ounces. - No food from midnight until time of surgery. Take the following medications with a SIP of water the morning of surgery: ___ESCITALOPRAM. HYDROCODONE & ONDANSETRON NEEDED DO NOT STOP ANY OF YOUR OTHER PRESCRIPTION MEDICATIONS PRIOR TO SURGERY ?EXCEPT THE FOLLOWING Medications to discontinue per physician HOLD ALL VITAMINS/SUPPLEMENT 3 DAYS PRE-OP PER ANESTHESIA Date to take last dose____01/05/24 Please no make-up, nail trinidadian, hairspray, perfume, deodorant, or body powder the day of surgery. No jewelry (including any body piercings) or valuables the day of surgery, leave them at home. Please take a shower or bath the night before, or the morning of, surgery with an antibacterial soap. Wear comfortable, loose fitting clothing. - Jewelry must be removed prior to entering the operating room. Rings and piercings that are not removed may be cut off. - The hospital will not accept responsibility for valuables. - Please leave all valuables, including medications, at home the day of surgery. If you are going home after surgery, a licensed tour bus driver/guide must drive you home. - NO public transportation without another adult if you receive anesthesia. - We recommend that an adult stay with you for 24 hours following discharge. - We also recommend that you do not drive, make important decision, drink alcoholic beverages, or take any drugs that were not prescribed by your health care provider for at least 24 hours after your discharge time. Follow any additional instructions given to you from your surgeon. If you or anyone in your household have experienced Covid symptoms in the past week, please notify your surgeon or the nurse liaison at the phone number below for possible testing. Telephone instructions given to ____PATIENT and asked if any additional questions and then verbalized understanding. Patient advised to call surgeon office or pre surgery nurse liaison [phone] if any additional questions.
--- NOTE | 2024-01-06 10:54 | PC.NURSE ---
Report to the Outpatient Waiting Room, entrance under the green pavilion located off [facility], at time _1100 on date ____01/11/24___. Planned Procedure Time: __1300 . Time changes happen often and if your time is changed the preop area will call you the afternoon before. - You and your visitor will be asked to self-screen and do not enter if you have any COVID symptoms. - A mask is optional within the hospital at this time. Patients may have clear liquids (water, carbonated beverages, clear teas, apple juice) until 3 hours prior to surgery( 10 AM ) with a maximum of 20 ounces. - No food from midnight until time of surgery - Infants may have breast milk until 4 hours before surgery, infant formula 6 hours prior to surgery. - Children will be allowed to drink immediately following surgery. If applicable, please bring a bottle or sippy cup to assist with drinking. Juice, water, soda, and popsicles are readily available. For infants on formula, please bring formula the day of surgery. Pacifiers are allowed. Take the following medications with a SIP of water the morning of surgery: ___ESCITALOPRAM,HYDROCODONE AND ONDANSETRON IF NEEDED DO NOT STOP ANY OF YOUR OTHER PRESCRIPTION MEDICATIONS PRIOR TO SURGERY ?EXCEPT THE FOLLOWING Medications to discontinue per physician HOLD ALL VITAMINS AND SUPPLEMENTS 3 DAYS PRE OP .LAST DOSE 01/07/24 Please no make-up, nail japanese, hairspray, perfume, deodorant, or body powder the day of surgery. No jewelry (including any body piercings) or valuables the day of surgery, leave them at home. Please take a shower or bath the night before, or the morning of, surgery with an antibacterial soap. Wear comfortable, loose fitting clothing. Children are encouraged to wear pajamas. - Jewelry must be removed prior to entering the operating room. Rings and piercings that are not removed may be cut off. - The hospital will not accept responsibility for valuables. - Please leave all valuables, including medications, at home the day of surgery. If you are going home after surgery, a licensed moving van driver must drive you home. - NO public transportation without another adult if you receive anesthesia. - We recommend that an adult stay with you for 24 hours following discharge. - We also recommend that you do not drive, make important decision, drink alcoholic beverages, or take any drugs that were not prescribed by your health care provider for at least 24 hours after your discharge time. For Pediatric surgeries, we recommend two adults accompany the child home. Follow any additional instructions given to you from your surgeon. If you or anyone in your household have experienced Covid symptoms in the past week, please notify your surgeon or the nurse liaison at the phone number below for possible testing. Telephone instructions given to ___PT and asked if any additional questions and then verbalized understanding. Patient advised to call surgeon office or pre surgery nurse liaison [phone] if any additional questions.
--- NOTE | 2024-01-06 10:56 | PC.NURSE ---
PT STATES NO CHANGE IN HEALTH HX SINCE LAST INTERVIEW ON 12/27/23
--- NOTE | 2024-01-06 10:59 | PM.IMHP ---
H&P: HPI History of Present Illness Date/Time: 01/06/24 10:59 Chief Complaint: Left 2nd and 5th trigger finger Narrative: 73-year-old female presents today for A1 serafin release of her left 2nd and 5th finger. She has been having symptoms of catching and locking in these fingers for several months. Patient has had a different trigger finger release in the past and did well with that. She declined injection as initial treatment. She stated that these were extremely painful injections and would rather just proceed to surgery rather than nonsurgical treatment. Review of Systems Review of Systems: All systems reviewed & are unremarkable except as noted in HPI and below PMFSH Past Medical History Medical History (Updated 01/06/24 @ 12:53 by HUA Urena) Adenomatous colon polyp AVN (avascular necrosis of bone) (~2021) Femur fracture, right History of smoking 10-25 pack years Vitamin D deficiency, unspecified Surgical History Surgical History (Updated 10/31/23 @ 09:34 by Fadia Plasencia APRN) History of left shoulder replacement Hx of gastric bypass Intestinal bypass and anastomosis status Family History Family History Mother Family history of obesity Family history of osteoporosis Depression Family history of migraine headaches Family history of cataracts Cerebrovascular accident Family history of arthritis Family history of diabetes mellitus in first degree relative Family history of heart disease in male family member before age 55 Diabetes mellitus Father Family history of obesity Depression Family history of cataracts Family history of alcoholism Acute myocardial infarction, Onset Age: 73 Cerebrovascular accident Family history of arthritis Family history of diabetes mellitus in first degree relative Family history of heart disease in male family member before age 55 Patient's father is Sibling Family history of obesity Family history of blood dyscrasia Family history of mental disorder Depression Family history of migraine headaches Family history of transient ischemic attacks Asthma Family history of liver disease Family history of hepatitis Family history of arthritis Family history of diabetes mellitus in first degree relative Family history of heart disease in male family member before age 55 Diabetes mellitus Grandparent Family history of obesity Family history of blood dyscrasia Family history of mental disorder Family history of cataracts Family history of arthritis Family history of Alzheimer's disease Diabetes mellitus Social History Social History Smoking packs per day: 1 Smoking cigarettes per day: 20.0 Years smoked: 27 Smoking pack-years: 27.00 Smoking status: Former smoker Tobacco type: cigarettes Second hand tobacco smoke exposure: Yes Smoking end date: 11/14/90 Alcohol intake: never Substance use: never Substance use type: prescription drug Other substance usage details: takes 1/2 [id number] nightly Lack of Transportation: No Lack of Food: Never True Current Housing: I Have Housing Concerned About Future Housing: No Difficulty Paying Gas/Electric Bills: No Difficulty Paying for Meds: No Currently Unemployed: No Education: High School Diploma/GED Difficulty w/ Childcare or Family Care: No Living arrangements: alone Spiritual care concerns: No Meds Home Medications and Allergies Home Medications Medication Instructions Recorded Confirmed Type blood sugar diagnostic (Contour #10 ea 11/28/19 01/06/24 History Next Test Strips) acetaminophen 500 mg tablet 1,000 mg PO Q6H PRN Pain 05/08/21 01/06/24 History (Tylenol Extra Strength) valacyclovir 1 gram tablet 1,000 mg PO Q8H PRN Cold Sores 07/13/23 01/06/24 History (Valtrex)
[2024-01-11 11:15] VITALS: BP 136/66; PULSE 75; RESP 14; TEMP 36.3; O2SAT 99; BMI 24.9
--- NOTE | 2024-01-11 11:28 | SUR.PREOP ---
1128- Dr. Ambriz notified by Janice Parikh RN that patient's last dose of Dicolfenac taken on Tuesday01/09/24. Per Dr. Ambriz OK to proceed with procedure.
--- NOTE | 2024-01-11 11:35 | WPDHPUPDATE1 ---
History and Physical Update Update Date/Time: 01/11/24 11:35 History and Physical has been reviewed, including an updated exam of the patient. There are NO changes in the patient's condition. Risks, benefits, and alternatives have been discussed and questions answered. Patient agrees to proceed with procedure.
[2024-01-11] MEDS: LACTATED RINGERS 1,000 ML 30 ML IV CONT (11:40)
[2024-01-11 11:48] LABS: Glucose Point of Care 110 mg/dl (65-105)
[2024-01-11] MEDS: ACETAMINOPHEN 500 MG TABLET 1000 MG PO (11:51)
--- NOTE | 2024-01-11 12:49 | WPDANESEPPF ---
Anes - Initial Pre Proc Eval Procedure: Operation Date: 01/11/24 13:00 Proposed Procedures p A1 Mira Release Left Second and Fifth Finger - Yuval Ambriz MD Date/Time: 01/11/24 12:49 Surgeon: Yuval Ambriz MD Pre Op Diagnosis: Left 2nd and 5th Trigger Fingers Patient Data Age: 73 Gender: F Height: 1.64 m Weight: 68 kg Allergies Allergy/AdvReac Type Severity Reaction Status Date / Time atorvastatin Allergy Intermediate Other Verified 01/11/24 12:46 rosuvastatin Allergy Intermediate Other Verified 01/11/24 12:46 [id number] Reductase Allergy Unknown Muscle Pain Verified 01/11/24 12:46 Inhibitor Home Medications Medication Instructions Recorded Confirmed Type blood sugar diagnostic (Contour #10 ea 11/28/19 01/06/24 History Next Test Strips) acetaminophen 500 mg tablet 1,000 mg PO Q6H PRN Pain 05/08/21 01/06/24 History (Tylenol Extra Strength) valacyclovir 1 gram tablet 1,000 mg PO Q8H PRN Cold Sores 07/13/23 01/06/24 History (Valtrex) hydrocodone 5 mg-acetaminophen 325 1 tablet PO Q8H PRN pain #90 tabs 11/23/23 01/06/24 Rx mg tablet cholecalciferol (vitamin D3) 125 125 mcg PO DAILY 12/27/23 01/11/24 History mcg (5,000 unit) capsule cyanocobalamin (vitamin B-12) 100 See Rx Instructions .Route .COMPLEX 12/27/23 01/11/24 History mcg/mL injection solution diclofenac sodium 75 mg 75 mg PO BID 12/27/23 01/11/24 History tablet,delayed release escitalopram oxalate 20 mg tablet 20 mg PO QAM 12/27/23 01/11/24 History famotidine 20 mg tablet 20 mg PO DAILY PRN Indigestion 12/27/23 01/06/24 History ferrous sulfate 325 mg (65 mg 325 mg PO DAILY 12/27/23 01/11/24 History iron) tablet glipizide 5 mg tablet 5 mg PO QAM 12/27/23 01/06/24 History irbesartan 300 1 tablet PO QAM 12/27/23 01/06/24 History mg-hydrochlorothiazide 12.5 mg tablet omeprazole 40 mg capsule,delayed 40 mg PO QAM 12/27/23 01/06/24 History release ondansetron 4 mg disintegrating 4 mg PO Q6-8H PRN Nausea 12/27/23 01/06/24 History tablet semaglutide 1 mg/dose (4 mg/3 mL) 1 mg (0.75 mL) subcut WEEKLY #3 mL 12/29/23 01/06/24 Rx subcutaneous pen injector (Ozempic) Laboratory Tests 01/11/24 11:46 POC Capillary Glucose 110 H mg/dl (65-105) Patient hx anesthesia problems: none Family hx anesthesia problems: none Results Review: All pre-operative results and documents have been reviewed as part of the pre-operative evaluation. [facility] Past Medical History Medical History Adenomatous colon polyp AVN (avascular necrosis of bone) (~2021) Femur fracture, right History of smoking 10-25 pack years Vitamin D deficiency, unspecified Surgical History Surgical History History of left shoulder replacement Hx of gastric bypass Intestinal bypass and anastomosis status Family History Family History Mother Family history of obesity Family history of osteoporosis Depression Family history of migraine headaches Family history of cataracts Cerebrovascular accident Family history of arthritis Family history of diabetes mellitus in first degree relative Family history of heart disease in male family member before age 55 Diabetes mellitus Father Family history of obesity Depression Family history of cataracts Family history of alcoholism Acute myocardial infarction, Onset Age: 73 Cerebrovascular accident Family history of arthritis Family history of diabetes mellitus in first degree relative Family history of heart disease in male family member before age 55 Patient's father is Sibling Family history of obesity Family history of blood dyscrasia Family history of mental disorder Depression Family history of migraine headaches Family history of transient ischemic attacks Asth
[2024-01-11] MEDS: ceFAZolin 2 GM/D5W 50 ML 2 GM/50 ML BAG IVPB (13:03)
[2024-01-11] MEDS: LIDOCAINE HCL 1% LOCAL INJ 10 ML VIAL 5 ML INFILTRATE (13:34)
[2024-01-11 14:00] VITALS: BP 110/49; PULSE 67; RESP 14; O2SAT 94
--- NOTE | 2024-01-11 14:13 | W.PM.PROC2 ---
Procedure Note - Detailed Date of Procedure 01/11/24 Pre-op Diagnosis Left 2nd and 5th Trigger Fingers Post-op Diagnosis Same Procedure Performed Release A1 serafin flexor tendon sheath this is of index and small fingers of left hand Surgeon Yuval Ambriz MD Anesthesia MAC Description of Procedure Patient was brought to the operating room and sedation was given in the left arm prepped draped fashion. Local anesthesia was administered 1% plain lidocaine. 2 g of Ancef were given IV preoperatively. The limb was exsanguinated tourniquet elevated to 200 and 25 mmHg. 1 cm longitudinal incisions were made over the A1 pulleys of small finger and index finger left hand. Dissection was carried down through the subcutaneous fat longitudinally blunt dissection and the A1 serafin was exposed. The cleft between the A1 serafin and A2 serafin was clearly defined and A1 serafin was released from this cleft extending proximally until complete release the A1 serafin was achieved. The same exact procedure was repeated for index finger. There was minimal additional tenosynovium over the index finger flexor tendons a moderate amount over the small finger flexor tendons and we debrided a little bit of this and confirmed the fingers flex and extend without catching. Tourniquet was released. Hemostasis achieved with a few minutes of pressure wounds irrigated and both wounds closed with 5 0 nylon suture and soft bulky dressing applied the patient was transferred postop recovery room normal condition. Blood loss negligible. Tourniquet time about 15 minutes.
[2024-01-11 14:17] LABS: Glucose Point of Care 87 mg/dl (65-105)
[2024-01-11 14:30] VITALS: BP 135/69; PULSE 66; RESP 14; O2SAT 96
[2024-01-11 15:00] VITALS: BP 127/53; PULSE 64; RESP 14
== END 2024-01-11 15:13 | disposition home or self-care (01) ==
PROVIDERS: PCP Family Medicine; Visit Provider Orthopaedic Surgery
PROC: (CPT 26055; principal; 2024-01-11 13:00)
DX: M65.322 Trigger finger, left index finger (principal); M65.352 Trigger finger, left little finger; E55.9 Vitamin D deficiency, unspecified; Z86.010 Personal history of colon polyps; Z96.612 Presence of left artificial shoulder joint; Z87.891 Personal history of nicotine dependence; Z98.84 Bariatric surgery status; E11.40 Type 2 diabetes mellitus with diabetic neuropathy, unspecified; I10 Essential (primary) hypertension; E78.2 Mixed hyperlipidemia
CPT/HCPCS: 26055 ×2; 82948; A9270; J0690; J2250; J2704; J3010; J7120

== ENCOUNTER 2024-04-18 11:32 | Outpatient (CLI) | payer OTHER, SELFPAY ==
--- NOTE | ~2024-04-18 | MM_ITS ---
EXAMINATION: MM screening toni BI w parisa HISTORY: Screening TECHNIQUE: Craniocaudal and mediolateral oblique 3-D tomosynthesis images were obtained and synthetic 2-D images were generated. CAD analysis was submitted and interpreted. COMPARISON: Comparison to multiple prior studies sequentially, with oldest reviewed study dated 08/11. BREAST PARENCHYMAL COMPOSITION: Not dense: There are scattered areas of fibroglandular density. FINDINGS: There is no evidence of suspicious mass, calcification, or architectural distortion to sugg est malignancy in either breast. There has been no suspicious interval change. IMPRESSION: 1. No mammographic evidence of malignancy. 2. Recommend routine screening mammography in one year. BI-RADS Category 1: Negative Reviewed, dictated and finalized at location B.
== END 2024-04-18 11:33 ==
LOC: MICIMG 11:33
PROVIDERS: PCP Family Medicine; Visit Provider Family Medicine
DX: Z12.31 Encounter for screening mammogram for malignant neoplasm of breast (principal)
CPT/HCPCS: 77063; 77067

== ENCOUNTER 2024-09-19 12:29 | Outpatient (CLI) | payer OTHER, SELFPAY ==
--- NOTE | ~2024-09-19 | MR_ITS ---
MRI of the thoracic spine Clinical History: Spinal stenosis Technique: Axial T2-weighted and gradient images, and sagittal T1-weighted, T2-weighted, and STIR sonia ges were acquired. Findings: There is chronic compression deformity versus possible Schmorl's node of T2. No bone marrow edema. No acute fracture seen. No subluxation. There is moderate degenerative disc narrowing through out the thoracic spine, especially from T5 through T12. No significant disc bulge or herniation seen at any thoracic level. No spinal canal stenosis or cord compression seen in the thoracic spine. There is mild right neural foraminal narrowing at T9-T10 and T10-T11. There is a 1 cm mildly hypointense lesion on all pulse sequences at the junction of the vertebral bod y and right pedicle at T10 (best seen on sagittal images 7), nonspecific. Impression: No acute fracture or subluxation. Probable chronic compression deformity of T2 versus Schmorl's noted . Extensive moderate degenerative disc narrowing with mild right neural foraminal narrowing at T9-T10 a nd T10-T11. Nonspecific 1 cm mildly hypointense lesion at the T10 right pedicle/vertebral body junction, as detai led above. Reviewed, dictated and finalized at [facility]. NGUAL STUDENT TUTOR Impression: No acute fracture or subluxation. Probable chronic compression deformity of T2 versus Schmorl's noted. Extensive moderate degenerative disc narrowing with mild right neural foraminal narrowing at T9-T10 and T10-T11. Nonspecific 1 cm mildly hypointense lesion at the T10 right pedicle/vertebral b damaris junction, as detailed above.
--- NOTE | ~2024-09-19 | MR_ITS ---
EXAMINATION: MR lumbar spine wo con DATE: 09/19/2024 13:50 INDICATION: Spinal stenosis, lumbar region without neurogenic claudication. Low back pain. TECHNIQUE: Magnetic resonance imaging (MRI) of the lumbar spine was performed without intravenous con trast. Sequences included sagittal T2-weighted FSE, sagittal T2-weighted FS FSE, sagittal T1-weighted FSE, and axial T2-weighted FSE. COMPARISON: Lumbar spine MRI 10/01/2011 FINDINGS: There is 8 degrees dextrocurvature of lumbar spine. There is 3 mm anterolisthesis of L4 on L5. Vertebral body heights are normal. There is mildly decreased disc height at L3-L4. The distal spi nal cord signal intensity is normal. The conus medullaris is at L1. There is peripheral displacement of the cauda equina L5-S1, consistent with arachnoiditis. The following disc levels are specifically discussed: L1-L2: The disc is bulging. There is moderate bilateral facet joint osteoarthritis. There is mild tessy ateral neural foraminal stenosis. There is mild central canal stenosis. L2-L3: The disc is bulging. There is moderate right and severe left facet joint osteoarthritis. There is mild bilateral neural foraminal stenosis. There is mild central canal stenosis. L3-L4: The disc is bulging. There is severe bilateral facet joint osteoarthritis. There is mild bilat eral neural foraminal stenosis. There is mild central canal stenosis. L4-L5: The disc is bulging and has an annular fissure. There is severe bilateral facet joint osteoart hritis. There is mild bilateral neural foraminal stenosis. There is mild central canal stenosis. L5-S1: The disc does not extend beyond the endplate margin. There is severe bilateral facet joint ost eoarthritis. There is mild bilateral neural foraminal stenosis. There is no central canal stenosis. IMPRESSION: 1. Mild lumbar spondylosis. 2. Arachnoiditis. Reviewed, dictated and finalized at location A. VITY DIRECTOR
--- NOTE | ~2024-09-19 | MR_ITS ---
MRI of the cervical spine Clinical History: Spinal stenosis Technique: Axial T2-weighted and gradient images, and sagittal T1-weighted, T2-weighted, and STIR sonia ges were acquired. Findings: There is no fracture or subluxation of the cervical spine. Vertebral bodies maintain normal height and alignment. There is chronic compression deformity of T2, without marrow edema. No suspici ous bone marrow signal abnormality seen. At C2-C3, there is no disc bulge or herniation. No spinal canal stenosis, cord compression, or neural foraminal narrowing. At C3-C4, there is no disc bulge or herniation. No spinal canal stenosis, cord compression, or neural foraminal narrowing. At C4-C5, there is advanced degenerative disc narrowing. There is disc and osteophyte complex with mi nimal canal stenosis but no yohan cord compression. There is bilateral neural foraminal narrowing wit h bilateral facet hypertrophy. At C5-C6, there is advanced degenerative disc narrowing. There is mild disc osteophyte complex. There is minimal canal stenosis without yohan cord compression. There is bilateral neural foraminal narrow ing. At C6-C7, there is advanced degenerative disc narrowing. There is mild disc bulge. No canal stenosis or cord compression. There is bilateral neural foraminal narrowing. No abnormal signal seen in the spinal cord. Paravertebral soft tissues are unremarkable. Impression: Moderate degenerative spondylosis of the lower cervical spine, with multilevel neural foraminal narro wing. Please see details above. Probable chronic compression deformity of T2 versus Schmorl's node. Reviewed, dictated and finalized at [facility]. TIC WELDER Impression: Moderate degenerative spondylosis of the lower cervical spine, with multilevel neural foraminal narrowing. Please see details above. Probable chronic compression deformity of T2 versus Schmorl's node.
== END 2024-09-19 12:30 | disposition home or self-care (01) ==
PROVIDERS: PCP Nurse Practitioner Family; Visit Provider Nurse Practitioner Family
DX: M48.02 Spinal stenosis, cervical region (principal); M48.061 Spinal stenosis, lumbar region without neurogenic claudication; M48.04 Spinal stenosis, thoracic region; M51.24 Other intervertebral disc displacement, thoracic region; M50.30 Other cervical disc degeneration, unspecified cervical region; M47.896 Other spondylosis, lumbar region
CPT/HCPCS: 72141; 72146; 72148

== ENCOUNTER 2025-03-07 14:17 | Outpatient (CLI) | payer OTHER, SELFPAY ==
--- NOTE | ~2025-03-07 | US_ITS ---
BILATERAL LOWER EXTREMITY VENOUS ULTRASOUND Ordering provider: Fadia Plasencia APRN History: . M16.924 - Pain in right leg . Comparison: None FINDINGS: RIGHT LOWER EXTREMITY VEINS: --COMMON FEMORAL: Patent and free of thrombus. Normal compressibility, phasic flow and augmentation. --PROXIMAL SUPERFICIAL FEMORAL: Patent and free of thrombus. Normal compressibility, phasic flow and augmentation. --DISTAL SUPERFICIAL FEMORAL: Patent and free of thrombus. Normal compressibility, phasic flow and au gmentation. --POPLITEAL: Patent and free of thrombus. Normal compressibility, phasic flow and augmentation. --POSTERIOR TIBIAL: Patent and free of thrombus. Normal compressibility, phasic flow and augmentation . LEFT LOWER EXTREMITY VEINS: --COMMON FEMORAL: Patent and free of thrombus. Normal compressibility, phasic flow and augmentation. --PROXIMAL SUPERFICIAL FEMORAL: Patent and free of thrombus. Normal compressibility, phasic flow and augmentation. --DISTAL SUPERFICIAL FEMORAL: Patent and free of thrombus. Normal compressibility, phasic flow and au gmentation. --POPLITEAL: Patent and free of thrombus. Normal compressibility, phasic flow and augmentation. --POSTERIOR TIBIAL: Patent and free of thrombus. Normal compressibility, phasic flow and augmentation . IMPRESSION: Negative bilateral lower extremity venous US. No deep vein thrombosis. Reviewed, dictated and finalized at location A.
--- OUTSIDE RECORDS SUMMARY | 2025-03-07 15:31 | XMS_ITS | Clinical Summary ---
Author Organization [facility] Address [address] [place] [address] Care Team Providers Care Therapeutic Dietitian Name Role Phone Steve Malloy MD Unavailable [phone] Khushi Koenig MD Unavailable [phone] Zia Nugent MD Unavailable [phone] Arvind Murrell MD Primary Care Provider [phone] Source Comments [facility],non-owned Affiliates and Associated Physician Practices is amultiple site organization consisting of ambulatory clinics and hospital sitesin [place], [place], [place] and [place]. This disclosure is being madepursuant to the Care Everywhere program and may not contain all information available regarding this patient. Last updated 18.[facility] Allergies Active Allergy Reactions Criticality Noted Date Comments Calcium Nausea and/or Vomiting 12/25/2013 Rosuvastatin Myalgias 12/25/2013 Atorvastatin Myalgias 12/25/2013 And caused cough Medications * Be aware that medications may not be up to date on this document. Alwaysverify current medications with the patient. sertraline (ZOLOFT) 100 MG tablet Take 1 (one) tablet by mouth once daily 4 Active irbesartan-hyd roCHLOROthiazi de (AVALIDE) 300-12.5 MG tablet 1 Active glipiZIDE (GLUCOTROL) 5 MG tablet Take 1 (one) tablet by mouth 2 times daily, before breakfast and supper Active Cholecalcifero l (VITAMIN D3) 1.25 MG (72628 UT) capsule 1 (one) capsule every 7 days 2 Active romosozumab-aq qg (Evenity) injection Inject 2.34 mL subcutaneously once Monthly Active HYDROcodone-ac etaminophen ([place]) 5-325 MG tablet Take 1 (one) tablet by mouth every 8 hours as needed For pain. 3 Active aspirin EC (PX Enteric Aspirin) 81 MG tablet 2 Active tiZANidine (Zanaflex) 4 MG tablet TAKE 1 TABLET BY MOUTH EVERY 8 HOURS NEEDED FOR MUSCLE SPASMS 40 tablet 3 Active Semaglutide(0. 25 or 0.5MG/DOS) 2 MG/3ML Solution Pen-injector (Ozempic (0.25 or 0.5 MG/DOSE)) Active omeprazole (PriLOSEC) 40 MG capsule Take 1 (one) capsule by mouth once daily 3 Active Calcium-Vitami n D-Vitamin K 500-100-40 MG-UNT-MCG Active B Complex Vitamins (Vitamin B-Complex) TABS Take 1 tablet by mouth once daily Active diclofenac sodium EC (Voltaren) 75 MG tablet Take 1 (one) tablet by mouth 2 times daily LAST REFILL UNTIL SEEN IN THE OFFICE 180 tablet 5 Active Active Problems Problem Noted Date Diagnosed Date Post-traumatic osteoarthritis of right knee 07/15 Postmenopausal osteoporosis 05/07/2022 S/P shoulder replacement, left 03/12/2022 Knee joint replacement by other means 10/09/2013 Osteoarthrosis involving lower leg 04/18/2012 Overview (02/07/2016): 2015 IMO Updt Family History Medical History Relation Name Comments Diabetes Daughter Diabetes Father Heart Disease Father Diabetes Mother Heart Disease Mother Relation Name Status Comments Daughter Father Mother Social History Tobacco Use Types Packs/Day Years Used Date Smoking Tobacco: Former Cigarettes 0 11/14/1954 - 11/14/1989 Smokeless Tobacco: Never Tobacco Cessation:Counseling Given: Not Answered Alcohol Use Standard Drinks/Week Comments No 0 (1 standard drink = 0.6 oz pur e alcohol) AUDIT-C Answer Date Recorded Q1: How often do you have a drink containing alcohol? Never 03/12/2022 Q2: How many drinks containi ng alcohol do you have on a typical day when you are drinking? Patient does not drink Q3: How often do you have si x or more drinks on one occasion? Never 03/12/2022 PHQ-2 Answer Date Recorded Patient Health Questionnaire-2 Score 0 09/14/2023 Comments No Sex and Gender Information Value Date Recorded Sex Assigned at Not on file Legal Sex Female 6:29 AM CARAMEL CANDY MAKER Gender Identity Not on file Sexual Orientation Not on file Last Filed Vital Signs Vital Sign Reading Time Taken Comments Blood Pressure 125/64 10/01/2022 9:35 AM CARAMEL CANDY MAKER Pulse 78 10/01/2022 9:35 AM CARAMEL CANDY MAKER Temperature 35.8 C (96.5 F) 10/01/2022 9:24 AM CARAMEL CANDY MAKER Respiratory Rate 16 10/01/2022 9:35 AM CARAMEL CANDY MAKER Oxygen Saturation 91% 10/01/2022 9:35 AM CARAMEL CANDY MAKER Inhaled Oxygen Concentration - - Weight 79.4 kg (175 lb) 01/10/2023 8:07 AM CARAMEL CANDY MAKER Height 167.6 cm (5' 6 ) 01/10/2023 8:07 AM CARAMEL CANDY MAKER Body Mass Index 28.25 01/10/2023 8:07 AM CARAMEL CANDY MAKER Plan of Treatment Health Maintenance Due Date Last Done Comments COLOGUARD (AGES 45-75) - COLON CA SCREENING 1950 COLON MONITORING 1950 COLONOSCOPY - COLON CA SCREENING 1950 CT COLONOGRAPHY - COLON CA SCREENING 1950 Colorectal Cancer Screening 1950 FIT - COLON CA SCREENING 1950 FLEX SIG - COLON CA SCREENING 1950 LIPID TESTING 1950 MAMMOGRAM 1950 MEDICARE AWV 12 MONTHS 1950 HEPATITIS C SCREENING 04/18/1969 DTAP/TDAP/TD VACCINES (1 - Tdap) 1970 PNEUMOCOCCAL VACCINE 50+ (1 of 1 - PCV) 2001 ZOSTER VACCINE (1 of 2) 2001 COVID-19 VACCINE (3 - season) 2024 12/30/2020, 12/02/2020 DEPRESSION SCREENING 11/14/2024 09/21/2023 INFLUENZA VACCINE (Season Ended) 2025 SCREENING FOR DIABETES 10/01/2025 , 10/01/2022, 09/09/2022, Additional history exists Respiratory Syncytial Virus (RSV) Vaccine Pt: or over 60 yrs (1 - 1-dose 75+ series) 2026 BONE DENSITY TESTING Completed 11/30/2023, 08/17/2022, 07/08/2022 HEPATITIS B VACCINE Aged Out No longe r eligible based on patient's age to complete this topic HIB VACCINE Aged Out No longer eligi ble based on patient's age to complete this topic HPV VACCINE Aged Out No longer eligi ble based on patient's age to complete this topic MENINGOCOCCAL (Group B) VACCINE SHARED DECISION-MAKING Aged Out No longer eligible based on patient's age to complete this topic MENINGOCOCCAL GROUPS A/C/Y/W VACCINE Aged Out No longer eligible based on patient's age to complete this topic Medical Devices Implanted Type Area Account Support Associate Device Identifier Shelf Expiration Date Model / Serial / Lot Joe Bone [place] Hv Implanted:Qty: 1 on 09/20/2013 by Steve Malloy MD at [facility] Left: Knee [employer] 04/12/2015 [id number] / / [id number] Butn Pat Arcom Wire Polyeth Sm 31 X 8mm Implanted:Qty: 1 on 09/20/2013 by Steve Malloy MD at [facility] Left: Knee [employer] 07/13/2018 [id number] / / [id number] Ins Kn Vangurd Fem Cocr L-Intlok 65.0mm Implanted:Qty: 1 on 09/20/2013 by Steve Malloy MD at [facility] Left: Knee [employer] 08/13/2023 [id number] / / [id number] Ty Tibial I Beam Fix Bar 71mm Implanted:Qty: 1 on 09/20/2013 by Steve Malloy MD at [facility] Left: Knee [employer] 07/13/2023 [id number] / / [id number] Brdg Tib Anaya Stbl 12mm X 71mm Implanted:Qty: 1 on 09/20/2013 by Steve Malloy MD at [facility] Left: Knee [employer] 09/12/2018 [id number] / / [id number] Head Hum 18mm 46mm 42mm Shldr Cmprh Implanted:Qty: 1 on 03/12/2022 by Khushi Koenig MD at [facility] Left: Shoulder Roxana [employer] 08/31/2031 [id number] / / [id number] Adpr Head Ti Std Tpr Cmprh Versa-Dial Implanted:Qty: 1 on 03/12/2022 by Khushi Koenig MD at [facility] Left: Shoulder [employer] 08/21/2031 [id number] / / [id number] Joe Bone [place]-G Hv 40/20 Implanted:Qty: 1 on 03/12/2022 by Khushi Koenig MD at [facility] Left: Shoulder [employer] 06/23/2023 [id number] / / [id number] Cmpnt Glnd Post Mdlr Aln Strl Lf Implanted:Qty: 1 on 03/12/2022 by Khushi Koenig MD at [facility] Left: Shoulder [employer] 03/21/2031 [id number] / / [id number] Cmpnt Glnd 2 4 Pg Mdlr Aln Shldr Strl Lf Implanted:Qty: 1 on 03/12/2022 by Khushi Koenig MD at [facility] Left: Shoulder [employer] 04/06/2029 [id number] / / [id number] Stem Hum W/Align Tpr 45deg 13mm X 140mm Implanted:Qty: 1 on 03/12/2022 by Khushi Koenig MD at [facility] Left: Shoulder [employer] 09/01/2031 [id number] / / [id number] Cmpnt Glnd 36mm Std Glenosphere Clr Cd Implanted:Qty: 1 on 10/01/2022 by Khushi Koenig MD at [facility] Right: Shoulder [employer] 06/12/2032 [id number] / / [id number] Bsplt Glnd Cmprh 25 Mm Mini Shldr Tpr Ad Implanted:Qty: 1 on 10/01/2022 by Khushi Koenig MD at [facility] Right: Shoulder [employer] 07/28/2032 [id number] / / [id number] Screw 6.5mm 25mm 3.5mm Cntr Hex Shldr Implanted:Qty: 1 on 10/01/2022 by Khushi Koenig MD at [facility] Right: Shoulder [employer] 07/27/2032 [id number] / / [id number] Tray Hum Cmprh +6mm Std Shldr Rvrs Implanted:Qty: 1 on 10/01/2022 by Khushi Koenig MD at [facility] Right: Shoulder [employer] 08/01/2032 [id number] / / [id number] Screw 4.75mm 25mm 3.5mm Lck Fx Ang Hex Implanted:Qty: 1 on 10/01/2022 by Khushi Koenig MD at [facility] Right: Shoulder [employer] 06/19/2032 [id number] / / [id number] Screw 4.75mm 20mm 3.5mm Lck Fx Ang Hex Implanted:Qty: 1 on 10/01/2022 by Khushi Koenig MD at [facility] Right: Shoulder [employer] 05/05/2032 [id number] / / [id number] Screw 4.75mm 20mm 3.5mm Lck Fx Ang Hex Implanted:Qty: 1 on 10/01/2022 by Khushi Koenig MD at [facility] Right: Shoulder [employer] 05/01/2032 [id number] / / [id number] Screw 4.75mm 15mm 3.5mm Lck Fx Ang Hex Implanted:Qty: 1 on 10/01/2022 by Khushi Koenig MD at [facility] Right: Shoulder [employer] 05/24/2032 [id number] / / [id number] Brng Hum 36mm Cmprh Std Shldr Vivacit-E Implanted:Qty: 1 on 10/01/2022 by Khushi Koenig MD at [facility] Right: Shoulder [employer] 07/27/2027 [id number] / / [id number] Stem Hum W/Align Tpr 45deg 12mm X 55mm Implanted:Qty: 1 on 10/01/2022 by Khushi Koenig MD at [facility] Right: Shoulder [employer] 03/10/2032 [id number] / / [id number] Explanted Type Area Account Support Associate Device Identifier Shelf Expiration Date Model / Serial / Lot Pin Fx 9in 3.2mm Stnm Explanted:Qty: 1 on 03/12/2022 at [facility] Left: Shoulder [employer] [id number] / / [id number] Pin Fx 9in 3.2mm Stnm Explanted:Qty: 1 on 10/01/2022 at [facility] Right: Shoulder [employer] [id number] / / [id number] Procedures Procedure Name Priority Date/Time Associated Diagnosis Comments DEXA BONE DENSITY AXIAL SKELETON Routine 11/30/2023 10:42 AM CARAMEL CANDY MAKER Postmenopausal osteoporosis Taking medication for chronic disease GLUCOSE - POINT OF CARE Routine 10/01/2022 6:11 AM CARAMEL CANDY MAKER from Last 3 Months or Most Recently Relevant to Health Maintenance Results * DEXA BONE DENSITY AXIAL SKELETON (11/30/2023 10:42 AM CARAMEL CANDY MAKER) Anatomical Region Laterality Modality Mammography 11/30/2023 11:1 5 AM CARAMEL CANDY MAKER Narrative 11/30/2023 11:16 AM CARAMEL CANDY MAKER PROCEDURE: DEXA BONE DENSITY AXIAL SKELETON, DATE/TIME OF EXAM: 11/30/2023 10:42 AM, LOCATION [facility] INDICATION: M81.0: Age-related osteoporosis without current pathological fracture R69: Illness, unspecified ADDITIONAL CLINICAL INFORMATION: Ordering Provider Reason For Exam: Technologist Note: Additional: COMPARISON: None. INDICATION: Postmenopausal ovarian failure - osteoporosis screening. The average bone mineral density from L1 to L4 is1.146 g/cm2. T-score is -0.4. Z-score is 1.1. The average bone mineral density of the total left hip is 0.599 g/cm2. T-score is -3.2. Z-score is -1.8. FRAX adjusted for TBS: Major osteoporotic: 37.4% Hip: 15% ASSESSMENT: This patient is considered osteoporotic according to World Health Organization (WHO) criteria. Pharmacological treatment, if not already prescribed, should be started. A followup bone density test is recommended in one year to monitor response to therapy. WORLD HEALTH ORGANIZATION DEFINITIONS OSTEOPENIA = -1 TO -2.5 SD BELOW T-SCORE. OSTEOPOROSIS = LESS THAN -2.5 SD BELOW T-SCORE > Interpreting Provider: Sanaz Haq MD on 11/30/2023 11:16 AM Procedure Note Sanaz Haq MD - 11/30/2023 PROCEDURE: DEXA BONE DENSITY AXIAL SKELETON, DATE/TIME OF EXAM:11/30/2023 10:42 AM, LOCATION [facility] INDICATION: M81.0: Age-related osteoporosis without current pathological fracture R69: Illness, unspecified ADDITIONAL CLINICAL INFORMATION: Ordering Provider Reason For Exam: Technologist Note: Additional: COMPARISON: None. INDICATION: Postmenopausal ovarian failure - osteoporosis screening. The average bone mineral density from L1 to L4 is1.146 g/cm2. T-score is -0.4. Z-score is 1.1. The average bone mineral density of the total left hip is 0.599 g/cm2. T-score is -3.2. Z-score is -1.8. FRAX adjusted for TBS: Major osteoporotic: 37.4% Hip: 15% ASSESSMENT: This patient is considered osteoporotic according to World Health Organization (WHO) criteria. Pharmacological treatment, if not already prescribed, should be started. A followup bone density test is recommended in one year to monitor response to therapy. WORLD HEALTH ORGANIZATION DEFINITIONS OSTEOPENIA = -1 TO -2.5 SD BELOW T-SCORE. OSTEOPOROSIS = LESS THAN -2.5 SD BELOW T-SCORE > Interpreting Provider: Sanaz Haq MD on 11/30/2023 11:16 AM Ted Castaneda SILICATOR-SENIOR VICE PRESIDENT DEXA ORDERABLES Final R esult * (ABNORMAL) GLUCOSE - POINT OF CARE (10/01/2022 6:11 AM CARAMEL CANDY MAKER) Glucose WB/POC 125(H) 70 - 106 mg/dL 10/01/2022 6:12 AM CARAMEL CANDY MAKER [facility] Specimen Type Venous 10/01/2022 6:12 AM CARAMEL CANDY MAKER [facility] Blood BLOOD SPECIMEN / Unknown 10/01/2022 6:11 AM CARAMEL CANDY MAKER 10/01/2022 6:12 AM CARAMEL CANDY MAKER us Khushi Koenig MD LAB - POINT OF CARE ORDERAB LES Final Result [facility] [address] [place] [address] from Last 3 Months or Most Recently Relevant to Health Maintenance Insurance [employer] [facility] Address: [address] [place] [address] [employer] Advance Directives * Full Code (Latest Code Status on File) Date Activated Date Inactivated Comments 03/12/2022 12:36 PM 03/13/2022 3:57 PM * FULL RESUSCITATION Date Activated Date Inactivated Comments 09/20/2013 12:12 PM 09/24/2013 9:31 AM Care Teams Therapeutic Dietitian Relationship Specialty Start Date End Date Arvind Murrell MD [address] [place] [address] PCP - General Family Medicine 07/12/23 Steve Malloy MD Orthopedic Surgery 04/18/12 [place] [address] [place] [address] Orthopedic Surgery 03/20/14 [place] [address] [place] [address] Anesthesiology-Pain Management 12/10/14
--- OUTSIDE RECORDS SUMMARY | 2025-03-07 15:31 | XMS_ITS | Clinical Summary ---
Author Organization [facility] Address [address] [place] [address] Care Team Providers Care Programmer Analyst Health It Name Role Phone Harshal Mark MD Primary Care Provider [phone] Immunizations Immunization Administration Dates Next Due MODERNA COVID-19 (12+) MRNA, LNP-S, PF, 100 MCG/ 0.5 ML DOSE 12/30/2020,12/02/2020 Social History Tobacco Use Types Packs/Day Years Used Date Smoking Tobacco: Never Assessed Comments Unknown Sex and Gender Information Value Date Recorded Sex Assigned at Not on file Legal Sex Female 7:53 PM CDT Gender Identity Not on file Sexual Orientation Not on file Plan of Treatment Health Maintenance Due Date Last Done Comments Colorectal Cancer Screening Colonoscopy (10 Years) 1951 Hepatitis C 1969 DTaP, Tdap and Td Vaccines ( 1 - Tdap) 1970 Mammogram Screening 1991 Pneumococcal Vaccine: 50+ Years (1 of 1 - PCV) 2001 Zoster Vaccines (1 of 2) 2001 Dexa Scan (General) 2016 COVID-19 Vaccine (3 - 2023-2 5 season) 2024 12/30/2020, 12/02/2020 RSV Immunization or 60+ Years (1 - 1-dose 75+ series) 2026 Meningococcal B Vaccine Aged Out No l onger eligible based on patient's age to complete this topic Meningococcal Vaccine Aged Out No sugar genie eligible based on patient's age to complete this topic RSV Immunizations Under 20 Months Aged Out No longer eligible b ased on patient's age to complete this topic Care Teams Programmer Analyst Health It Relationship Specialty Start Date End Date Harshal Mark MD [address] [facility] [address], [place] [address] PCP - General 07/28/11
--- OUTSIDE RECORDS SUMMARY | 2025-03-07 15:31 | XMS_ITS | Clinical Summary ---
Author Organization [facility] Address [address] [address] Care Team Providers Care Credit Or Loans Officer Name Role Phone Arvind Murrell MD Primary Care Provider [phone] Allergies Active Allergy Reactions Criticality Noted Date Comments Atorvastatin Cough,Muscle Pain Low 12/25/2013 And caused cough Rosuvastatin Muscle Pain Medium 12/25/2013 Medications cholecalciferol, vitamin D3, 250 mcg (10,000 unit) Tablet unsure med dosage qd Active glipiZIDE (GLUCOTROL) 5 mg tablet Take 5 mg by mouth 2 times daily. Active irbesartan-hydroC HLOROthiazide (AVALIDE) 300-12.5 mg tablet Take 1 Tablet by mouth daily. 07/30/20 21 Active Multivitamin Capsule Take 1 Capsule by mouth daily. Active semaglutide 0.25 mg or 0.5 mg (2 mg/3 mL) Pen Injector Inject by subcutaneous injection. Active VITAMIN B COMPLEX ORAL Take 1 Tablet by mouth daily. Active diclofenac (SOLARAZE) 3 % gel Apply to affected area 2 times daily. Active sertraline (ZOLOFT) 100 mg tablet Take 100 mg by mouth daily. Active HYDROcodone-aceta minophen (NORCO) 5-325 mg tablet Take 1 Tablet by mouth. 04/04/20 23 Active iron/lysine/vit B comp/zinc (IRON-B UFURNIW-[id number]-EB NC ORAL) Take by mouth. Activ e cannabidiol, CBD, product, for documentation purposes, Take by mouth. Activ e ferrous sulfate (FEOSOL) 300 mg (60 mg iron)/5 mL solution Take 5 mL (300 mg) by mouth daily. 150 mL 3 04/20/20 24 Active Active Problems No known active problems Encounters Date Type Department Care Team Description 01/30/2025 External Device Data [facility] ABSTRACTION Provider, Abstract 01/19/2025 External Device Data [facility] ABSTRACTION Provider, Abstract 01/19/2025 External Device Data [facility] ABSTRACTION Provider, Abstract 01/16/2025 External Device Data [facility] ABSTRACTION Provider, Abstract 01/02/2025 External Device Data [facility] ABSTRACTION Provider, Abstract from Last 3 Months Family History Medical History Relation Name Comments Diabetes Brother 1 Diabetes Brother 2 Heart Disease Daughter 1 Heart Disease Father Prostate Cancer Father Heart Disease Mother Relation Name Status Comments Brother 1 Alive Brother 2 Daughter 1 Alive Daughter 2 Alive Daughter 3 Alive Father Mother Sister 1 Alive Sister 2 Alive Social History Tobacco Use Types Packs/Day Years Used Date Smoking Tobacco: Former Cigarettes Q uit: 1990 Smokeless Tobacco: Never Tobacco Cessation:Counseling Given: Not Answered Alcohol Use Standard Drinks/Week Comments Never 0 (1 standard drink = 0.6 oz pur e alcohol) Comments Unknown Sex and Gender Information Value Date Recorded Sex Assigned at Not on file Legal Sex Female 4:04 PM CDT Gender Identity Not on file Sexual Orientation Not on file Last Filed Vital Signs Vital Sign Reading Time Taken Comments Blood Pressure 129/67 04/20/2024 10:31 AM CDT Pulse 77 04/20/2024 10:31 AM CDT Temperature 36.8 C (98.3 F) 04/20/2024 10:31 AM CDT Respiratory Rate 14 04/20/2024 10:31 AM CDT Oxygen Saturation 95% 04/20/2024 10:31 AM CDT Inhaled Oxygen Concentration - - Weight 65.3 kg (144 lb) 04/20/2024 10:31 AM CDT Height 167.6 cm (5' 6 ) 10/24/2023 3:10 PM SALES TRAINING COORDINATOR Body Mass Index 23.24 10/24/2023 3:10 PM SALES TRAINING COORDINATOR Plan of Treatment Health Maintenance Due Date Last Done Comments DTAP/TDAP/TD VACCINES (1 - Tdap) 1970 BREAST CANCER SCREENING 1991 COLORECTAL SCREENING 1996 Colorectal Cancer Screening 1996 FIT-DNA Q 3 years 1996 FIT/FOBT Q 1 year 1996 Flex Sig/CT Colonography Q 5 years 1996 PNEUMOCOCCAL VACCINE 50+ YEA RS (1 of 1 - PCV) 2001 ZOSTER VACCINE (1 of 2) 2001 INFLUENZA VACCINE (#1) 2024 COVID-19 Vaccine (3 - 2023- season) 2024, 12/02/2020 RSV VACCINE (60+ or ) (1 - 1-dose 75+ series) 2026 OSTEOPOROSIS SCREENING 11/30/2028 , 11/30/2023, 07/08/2022 Insurance [facility] MCR Care Teams Credit Or Loans Officer Relationship Specialty Start Date End Date Arvind Murrell MD [address] [place] [address] PCP - General Family Practice 10/24/23
--- OUTSIDE RECORDS SUMMARY | 2025-03-07 15:31 | XMS_ITS | Referral Summary ---
Author Organization [facility] Address [address] [place] [address] Care Team Providers Care Account Assistant Name Role Phone Ovidio Murrell MD Primary Care Provider [phone] Allergies Active Allergy Reactions Criticality Noted Date Comments Atorvastatin Cough Low 12/25/2013 Rosuvastatin Muscle pain Medium 12/25/2013 Medications simethicone (GAS-X EXTRA STRENGTH) 125 mg capsule unsure med dosage prn Active telmisartan (MICARDIS) 20 mg tablet 1 tab daily, pt is unsure of dosage Active pantoprazole (PROTONIX) [address] for susp in packet 2 times daily. 12/08/19 18 Active UNKNOWN TO PATIENT bariatric multivitamins unsure med dosage qd Active cholecalciferol (VITAMIN D-3) 10,000 unit tablet unsure med dosage qd Active vitamin E (AQUASOL E) 100 unit capsule unsure med dosage qd Active sertraline (ZOLOFT) 100 mg tablet daily. 08/28/20 15 Active biotin 300 mcg tablet 300 mcg. Active HYDROcodone-acet aminophen (NORCO) 5-325 mg per tabletIndication s:Pain Take 1 tablet by mouth every 6 (six) hours as needed Active romosozumab-aqqg (Evenity) 105 mg/1.17 mL subcutaneous syringe Inject 2.34 mL (210 mg total) under the skin once Active omeprazole (PriLOSEC) 40 mg capsule Take 1 capsule (40 mg total) by mouth daily 08/08/20 23 Active irbesartan-hydro CHLOROthiazide (AVALIDE) 300-12.5 mg per tablet Take 1 tablet by mouth daily Active glipiZIDE (GLUCOTROL) 5 mg tablet Take 1 tablet (5 mg total) by mouth 2 (two) times a day Active famotidine (PEPCID) 20 mg tablet TAKE 1 TABLET BY MOUTH TWICE DAILY FOR 2 WEEKS 08/04/20 23 Active calcium-vitamin D3-vitamin K 500-100-40 mg-unit-mcg tablet,chewable Take by mouth Active vitamin b complex tablet Take 1 tablet by mouth daily Active multivitamin capsule Take 1 capsule by mouth daily Active TiZANidine (ZANAFLEX) 4 mg capsule Take 1 capsule (4 mg total) by mouth 3 (three) times a day as needed for muscle spasms Active semaglutide (Ozempic) 0.25 mg or 0.5 mg (2 mg/3 mL) pen injector injection Inject under the skin Active Active Problems Problem Noted Date Diagnosed Date Fracture of neck of femur 08/15/2023 Closed intertrochanteric fracture 08/15/2023 Chondrocalcinosis of knee 08/15/2023 Post-traumatic osteoarthritis of right knee 07/15 Postmenopausal osteoporosis 05/07/2022 S/P shoulder replacement, left 03/12/2022 Intestinal malabsorption 05/19/2018 Pain in the abdomen 11/29/2017 Nausea 11/29/2017 Left upper quadrant pain 11/18/2017 History of bariatric surgery 04/07/2016 Aneurysm of splenic artery 03/22/2016 Hypertension 08/28/2015 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 Obstructive sleep apnea syndrome 08/28/2015 Morbid obesity 08/28/2015 Social History Tobacco Use Types Packs/Day Years Used Date Smoking Tobacco: Former Smokeless Tobacco: Never Tobacco Cessation:Counseling Given: Not Answered Comments Unknown Sex and Gender Information Value Date Recorded Sex Assigned at Not on file Legal Sex Female 9:13 PM CUSTOMER SERVICE COORDINATOR Gender Identity Not on file Sexual Orientation Not on file Last Filed Vital Signs Vital Sign Reading Time Taken Comments Blood Pressure 135/78 08/15/2023 11:24 AM CDT Pulse 99 08/15/2023 11:24 AM CDT Temperature 36.6 C (97.9 F) 05/19/2018 9:48 AM CDT Respiratory Rate - - Oxygen Saturation 99% 08/15/2023 11:24 AM CDT Inhaled Oxygen Concentration - - Weight 78.5 kg (173 lb) 08/15/2023 11:24 AM CDT Height 167.6 cm (5' 6 ) 08/15/2023 11:24 AM CDT Body Mass Index 27.92 08/15/2023 11:24 AM CDT Plan of Treatment Not on file Insurance [facility] Care Teams Account Assistant Relationship Specialty [place] [id number] [place] [id number] PCP - General Orthopedic Surgery 07/20/23
--- OUTSIDE RECORDS SUMMARY | 2025-03-07 15:31 | XMS_ITS | Encounter Summary ---
Author Organization [facility] Address [address] [place] [address] Care Team Providers Care Railroad Wheels And Axle Inspector Name Role Phone Steve Malloy MD Unavailable [phone] Fred Eng MD Primary Care Provider [phone] Khushi Koenig MD Unavailable [phone] Zia Nugent MD Unavailable [phone] Jani Valadez MD Primary Care Provider [phone] Arvind Murrell MD Primary Care Provider [phone] Encounter Details Date Type Department Care Team (Late st Contact Info) Description 06/28/2014 Therapy Visit [facility] [id number] [address] [place] [id number] [address] Social History Tobacco Use Types Packs/Day Years Used Date Smoking Tobacco: Former Cigarettes 0 11/14/1954 - 11/14/1989 Smokeless Tobacco: Never Comments:2 packs per week Alcohol Use Standard Drinks/Week Comments No 0 (1 standard drink = 0.6 oz pur e alcohol) Comments No Sex and Gender Information Value Date Recorded Sex Assigned at Not on file Legal Sex Female 6:29 AM TRAINING ENGINEER Gender Identity Not on file Sexual Orientation Not on file documented as of this encounter Plan of Treatment Not on file documented as of this encounter Visit Diagnoses Not on filedocumented in this encounter Care Teams Railroad Wheels And Axle Inspector Relationship Specialty Start Date End Date Fred Eng MD PCP - General Internal Medicine 04/18/12 11/09/21 [place] [id number] [address] PCP - General Internal Medicine 12/15/22 07/11/23 Arvind Murrell MD [address] [place] [id number] PCP - General Family Medicine 07/12/23 Steve Malloy MD Orthopedic Surgery 04/18/12 [place] [address] [place] [address] Orthopedic Surgery 03/20/14 [place] [address] [place] [address] Anesthesiology-Pain Management 12/10/14 documented as of this encounter
--- OUTSIDE RECORDS SUMMARY | 2025-03-07 15:32 | XMS_ITS | Clinical Summary ---
Author Organization [facility] Address [address] [place] [address] Care Team Providers Care Family Reunification Specialist Name Role Phone Ovidio Murrell MD Primary Care Provider [phone] Allergies Active Allergy Reactions Criticality Noted Date [...] sleep apnea syndrome 08/28/2015 Morbid obesity 08/28/2015 Surgical History Surgery Date Site/Laterality Comments BALDEMAR-EN-Y PROCEDURE Medical History Medical History Date Comments Morbid obesity (HCC) Depression Type 2 diabetes mellitus (HCC) Sleep apnea Intestinal malabsorption Family History Medical History Relation Name Comments Heart disease Father Family history of cardiac disorder - (Added by TW Conv) Hypertension Father Family history of hypertension - (Added by TW Conv) Obesity Father Family history of obesity - (Added by TW Conv) Depression Mother Family history of depression - (Added by TW Conv) Diabetes Mother Family history of diabetes mellitus - (Added by TW Conv) Heart disease Mother Family history of cardiac disorder - (Added by TW Conv) Hypertension Mother Family history of hypertension - (Added by TW Conv) Obesity Mother Family history of obesity - (Added by TW Conv) Stroke Mother Family history of cerebrovascular accident (CVA) - (Added by TW Conv) Relation Name Status Comments Father Mother Social History Tobacco Use Types Packs/Day Years Used Date Smoking Tobacco: Former Smokeless Tobacco: Never Tobacco Cessation:Counseling Given: Not Answered Comments Unknown Sex and Gender Information Value Date Recorded Sex Assigned at Not on file Legal Sex Female 9:13 PM FLAME GOUGER Gender Identity Not on file Sexual Orientation Not on file Obstetrics History Last Filed Vital Signs Vital Sign Reading [...] 08/15/2023 11:24 AM CDT Plan of Treatment Health Maintenance Due Date Last Done Comments Breast Cancer Screening-Mammogram 1951 Colon Cancer Screening-Colonoscopy 1951 Depression Screening 1951 Fall Risk Assessment 1950 Hepatitis C Screening 1951 Osteoporosis Screening-Bone Density Scan 1951 DTaP/Tdap/Td Vaccine (1 - Tdap) 1962 Hepatitis B Screening 1969 Pneumococcal vaccine 65+ (1 of 1 - PCV) 2001 Zoster Vaccine (1 of 2) 2001 Well Visit 65+ 2016 Covid-19 Vaccine ( season) 2024, 12/02/2020 Influenza Vaccine (Season Ended) 2025 Insurance [facility] [address] [place] [address] HEALTHCARE Care Teams Family Reunification Specialist Relationship Specialty [place] [id number] [place] [address] PCP - General Orthopedic Surgery 07/20/23
--- OUTSIDE RECORDS SUMMARY | 2025-03-07 15:32 | XMS_ITS | Data Portability ---
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 Today myself and Dr. Ambriz discussed treatment options with the patient in detail she was offered cortisone injections however she declined. She states these are very painful and did not help her 4th trigger finger a few years back and she was quite pleased with the surgery results on the left 4th finger. She does wants to have her 2nd and 5th fingers fixed rather than go through any more cortisone injections which did not work for her previously. Today myself and Dr Ambriz talked about risks benefits limitations and alternatives including the risk of infection, risk of chronic scarring and pain postoperatively, wound healing problems, small risk of digital nerve injury and of course possible anesthesia complications. These are all very small risks however they do exist the patient voiced understanding. She would like to proceed. We will get her set up for A1 serafin release of the left 2nd and 5th fingers in the near future. The patient voiced understanding and agrees with above plan she will call for any further problems difficulties or questions. [email or web address] Not available 11/04/2023 12:05:44 01/25/2024 01/25/2024 HPI: Patient returns. She is here for follow-up of her left index and 5th finger A1 serafin release. She is 2 weeks out. She is having no triggering since time surgery. Physical exam: Incisions are well healed. Stitches removed. She has full range of motion of her fingers. No swelling noted in the fingers. Trace swelling around the incisions. Impression: Patient is doing very well 2 weeks out left index and 5th finger A1 serafin release. she can continue to increase activities as tolerated we will see her back as needed [email or web address] Not available 01/25/2024 11:55:02 Plan of Treatment Reminders Order Date Submit Date Provider Last Modified By Organization Details Last Modified Time Details Appointments None record ed. Lab None record ed. Referral None record ed. Procedures None record ed. Surgeries None record ed. Imaging XR, hand 023 11/04/20 23 [email or web address] [facility] [place], [address], [place], [address], 12:06:16 Medication Orders None record ed. Patient TargetsNo targets recorded. Patient InstructionsNo instructions recorded. Reason for Referral None Reported. Results Created Date Observation Date Name Description Value Unit Range Abnormal Flag Note LastModifiedBy Organization Detail LastModifiedTime 04/17/20 21 04/20/2021 XR, hip + pelvi s, unila teral No observ ation record ed. [id number] [facility] [place] [address], [place], [address], 01/12/2023 13:31:29 05/22/20 21 XR, hip, unila teral , 2 or 3 view No observ ation record ed. [id number] [facility] [place] [address], [place], [address], 01/12/2023 13:31:29 05/22/20 21 05/22/2021 US, nanyle x, venou s, lower extre mity No observ ation record ed. [id number] [facility] [address], [place], [address], 01/12/2023 13:31:29 07/30/20 21 07/28/2021 XR, shoul true, 2 or more view No observ ation record ed. [id number] Not Available 01/12/2023 13:31:29 11/04/20 23 XR, hand No observ ation record ed. [email or web address] [facility] [place] [address], [place], [address], 11/04/2023 12:06:15 Result Notes None recorded. 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 Not Available [facility] 3 13:29:39 Chondrocal cinosis of knee joint 002260613 Active Not Available [facility] 3 13:29:39 Fracture of neck of femur 8320531 Active Not Available [facility] 3 13:29:39 Closed intertroch anteric fracture 54490087 Active Not Available [facility] 3 13:29:39 Pain of left hand 1982244715373 03 Active 2022 Lesley Navarrete, ATC L null, [place] [employer] [facility] 3 11:13:06 Acquired trigger finger of left index finger 3277223340040 04 Active 2022 HUA Arenas [address], [place], [address] , [employer] 3 12:06:31 Acquired trigger finger of left little finger 4292637450886 00 Active 2022 HUA Arenas [address], [place], [address] , [facility] [employer] [facility] 3 12:06:47 Trigger finger of right hand 3587072375654 9101 Active 2023 April Lin, VIKAS null, [place] [facility] 11:42:33 Problem Notes None recorded. Procedures Surgical History Date Name Laterality Status Provider Name and Address Organization Details Recorded Time Shoulder completed Lesley Navarrete, ATC L [place] [facility] 11/04/2023 11:11:00 procedure on femur completed Lesley Navarrete, ATC L [place] [facility] 11/04/2023 11:11:38 Carpal tunnel completed Lesley Navarrete, ATC L [place] [facility] 11/04/2023 11:11:49 section completed Lesley Navarrete, ATC L [place] [facility] 11/04/2023 11:12:00 section completed Lesley Navarrete, ATC L [place] [facility] 11/04/2023 11:12:01 section completed Lesley Navarrete, ATC L [place] [facility] 11/04/2023 11:12:02 section completed Lesley Navarrete, ATC L [place] [facility] 11/04/2023 11:12:04 closed rhinoplasty completed Lesley Navarrete, ATC L [place] [facility] 11/04/2023 11:12:24 release of trigger finger completed Lesley Navarrete, ATC L [place] [facility] 11/04/2023 11:12:33 Imaging Results Imaging Date Name Status LastModified by [facility] Details LastModified Time 04/20/2021 XR, hip + pelvis, unilateral completed [id number] [facility] [place] [address], [place], [address], 01/12/2023 13:31:29 05/22/2021 XR, hip, unilateral, 2 or 3 view completed [id number] [facility] [place] [address], [place], [address], 01/12/2023 13:31:29 05/22/2021 US, duplex, venous, lower extremity completed [id number] [facility] [address], [place], [address], 01/12/2023 13:31:29 07/28/2021 XR, shoulder, 2 or more view completed [id number] Information not available 01/12/2023 13:31:29 11/04/2023 XR, hand completed [email or web address] [facility] [place] [address], [place], [address], 11/04/2023 12:06:15 Procedure Notes None recorded. Medical Equipment None Reported. Allergies Allergen ID Allergen Name Allergen Category Reaction Reaction Severity Criticality Documentation Date Start Date Code Code System Note Provider Name and Address Organization Details Recorded Time 32892 Product containin g 3-hydroxy -3-methyl glutaryl- coenzyme A reductase inhibitor (product) medicatio n Not available Not available Not available 01/12/2023 72421 009 SNOMED leg cramp Not Available [employer] 13:31:27 Medications Name Sig Start Date Stop Date Status Note LastModified by Organization Details LastModified Time celecoxib 200 mg capsule TAKE 1 CAPSULE BY MOUTH TWICE DAILY 11/04 completed Not Available Not Available Not Available metformin 500 mg tablet TAKE 2 TABLETS BY MOUTH IN THE MORNING AND 1 TABLET IN THE EVENING 11/04 completed Not Available Not Available Not Available nystatin 100,000 unit/mL oral suspension 11/04 completed Not Available Not Available Not Available prednisone 10 mg tablet TAKE 1 TABLET BY MOUTH THREE TIMES DAILY FOR 3 DAYS THEN 1 TWICE DAILY FOR 2 DAYS THEN 1 ONCE DAILY FOR 1 DAY 11/04 completed Not Available Not Available Not Available irbesartan 150 mg-hydrochl orothiazide 12.5 mg tablet 07/22 completed Not Available Not Available Not Available ibuprofen 800 mg tablet TAKE 1 TABLET BY MOUTH THREE TIMES DAILY WITH MEALS 11/04 completed Not Available Not Available Not Available tizanidine 4 mg tablet TAKE 1 TABLET BY MOUTH EVERY 8 HOURS NEEDED FOR MUSCLE SPASMS 11/04 completed Not Available Not Available Not Available benzonatate 200 mg capsule TAKE 1 CAPSULE BY MOUTH THREE TIMES DAILY NEEDED FOR COUGH 07/22 completed Not Available Not Available Not Available valacyclovi r 1 gram tablet TAKE 1 TABLET BY MOUTH EVERY 8 HOURS 11/04 completed Not Available Not Available Not Available hydrocodone 5 mg-acetamin ophen 325 mg tablet TAKE 1 TABLET BY MOUTH EVERY 4 HOURS NEEDED FOR PAIN active Not Available Not Available No t Available meloxicam 15 mg tablet TAKE 1 TABLET BY MOUTH ONCE DAILY WITH FOOD 11/04 completed Not Available Not Available Not Available ondansetron HCl 4 mg tablet 08/22 completed Not Available Not Available Not Available Medrol (Jesus) 4 mg tablets in a dose pack Take 1 dose pk by oral route as directed. 11/04 completed Not Available Not Available Not Available sertraline 100 mg tablet TAKE 1 TABLET BY MOUTH ONCE DAILY active Not Available Not Available No t Available ciprofloxac in 500 mg tablet TAKE 1 TABLET BY MOUTH EVERY 12 HOURS FOR 7 DAYS 11/04 completed Not Available Not Available Not Available omeprazole 40 mg capsule,del ayed release TAKE 1 CAPSULE BY MOUTH ONCE DAILY active Not Available Not Available No t Available tramadol 50 mg tablet 07/22 completed Not Available Not Available Not Available prednisone 10 mg tablets in a dose pack Take 1 tab by mouth, 3 times a day for 3 daysTake 1 tab by mouth 2 times a day for 2 daysTake 1 tab by mouth once a day for 1 day 11/04 completed Not Available Not Available Not Available meloxicam 7.5 mg tablet Take 1 tablet twice a day by oral route. active Not Available Not Available No t Available famotidine 20 mg tablet TAKE 1 TABLET BY MOUTH TWICE DAILY FOR 2 WEEKS active Not Available Not Available No t Available ropinirole 0.25 mg tablet 08/22 completed Not Available Not Available Not Available Kenalog 10 mg/mL suspension for injection In office injection administe red by the provider 11/04 completed [facility]: [phone]- [phone] Not Available Not Available Not Available baclofen 10 mg tablet TAKE 1 TABLET BY MOUTH DAILY AT BEDTIME 11/04 completed Not Available Not Available Not Available hydrocodone 7.5 mg-acetamin ophen 325 mg tablet 08/22 completed Not Available Not Available Not Available cephalexin 500 mg capsule TAKE 1 CAPSULE BY MOUTH EVERY 6 HOURS 03/13 /2024 completed Not Available Not Available Not Available metformin 1,000 mg tablet TAKE 1 TABLET BY MOUTH TWICE DAILY 11/04 completed Not Available Not Available Not Available neomycin-po lymyxin-dex ameth 3.5 mg/mL-10,00 0 unit/mL-0.1 % eye drops INSTILL 1 DROP INTO EACH EYE TWICE DAILY 11/04 completed Not Available Not Available Not Available halobetasol propionate 0.05 % topical ointment 11/04 completed Not Available Not Available Not Available irbesartan 300 mg-hydrochl orothiazide 12.5 mg tablet TAKE 1 TABLET BY MOUTH ONCE DAILY active Not Available Not Available No t Available gabapentin 300 mg capsule TAKE 1 CAPSULE BY MOUTH EVERY NIGHT AT BEDTIME 11/04 completed Not Available Not Available Not Available diclofenac sodium 75 mg tablet,guerrero yed release TAKE 1 TABLET BY MOUTH TWICE DAILY active Not Available Not Available No t Available gabapentin 100 mg capsule TAKE 1 CAPSULE BY MOUTH AT BEDTIME 11/04 completed Not Available Not Available Not Available Vitamin D2 1,250 mcg (50,000 unit) capsule TAKE 1 CAPSULE BY MOUTH ONCE A WEEK FOR 8 WEEKS 08/22 completed Not Available Not Available Not Available carbidopa 25 mg-levodopa 100 mg tablet 08/22 completed Not Available Not Available Not Available ondansetron 4 mg disintegrat ing tablet DISSOLVE 1 TABLET IN MOUTH EVERY 6 HOURS NEEDED FOR NAUSEA AND VOMITING FOR 30 DAYS active Not Available Not Available No t Available glipizide 5 mg tablet TAKE 1 TABLET BY MOUTH TWICE DAILY active Not Available Not Available No t Available amoxicillin 875 mg-potassiu m clavulanate 125 mg tablet TAKE 1 TABLET BY MOUTH EVERY 12 HOURS FOR 5 DAYS 11/04 completed Not Available Not Available Not Available nabumetone 500 mg tablet TAKE 1 TABLET BY MOUTH THREE TIMES DAILY NEEDED FOR 14 DAYS 11/04 completed Not Available Not Available Not Available amoxicillin 500 mg-potassiu m clavulanate 125 mg tablet TAKE 1 TABLET BY MOUTH EVERY 12 HOURS 11/04 completed Not Available Not Available Not Available oxycodone 5 mg tablet TAKE 1 TABLET BY MOUTH EVERY 8 HOURS NEEDED FOR PAIN 11/04 completed Not Available Not Available Not Available escitalopra m 20 mg tablet TAKE 1 TABLET BY MOUTH ONCE DAILY active Not Available Not Available No t Available ezetimibe 10 mg tablet TAKE 1 TABLET BY MOUTH ONCE DAILY 11/04 completed Not Available Not Available Not Available telmisartan 80 mg-hydrochl orothiazide 25 mg tablet 08/20 completed Not Available Not Available Not Available ibandronate 150 mg tablet TAKE 1 TABLET BY MOUTH ON AN EMPTY STOMACH IN THE MORNING MONTHLY WITH A FULL GLASS OF WATER. STAY IN UPRIGHT POSITION FOR 60 MINUTES FOLLOWING DOSE 11/04 completed Not Available Not Available Not Available lidocaine (PF) 10 mg/mL (1 %) injection solution In office injection administe red by the provider 11/04 completed [facility]: [phone]- [phone] Not Available Not Available Not Available Januvia 50 mg tablet 08/22 completed Not Available Not Available Not Available Golytely 236 gram-22.74 gram-6.74 gram-5.86 gram oral solution DRINK 240ML EVERY 10 MINUTES UNTIL FECAL EFFLUENT IS CLEAR; DO NOT EXCEED A TOTAL VOLUME OF 4000ML 11/04 completed Not Available Not Available Not Available cholecalcif vladimir (vitamin D3) 1,250 mcg (50,000 unit) capsule TAKE 1 CAPSULE BY MOUTH ONCE A WEEK active Not Available Not Available No t Available Contour Next Test Strips 11/04 completed Not Available Not Available Not Available Farxiga 10 mg tablet TAKE 1 TABLET BY MOUTH ONCE DAILY 11/04 completed Not Available Not Available Not Available Trulicity 0.75 mg/0.5 mL subcutaneou s pen injector INJECT 0.75 MG (0.5ML) SUBCUTANE OUSLY ONCE A WEEK 11/04 completed Not Available Not Available Not Available Ozempic 1 mg/dose (4 mg/3 mL) subcutaneou s pen injector INJECT 1 MG SUBCUTANE OUSLY ONCE A WEEK EVERY TUESDAY active Not Available Not Available No t Available Vitals Date Recorded Body mass index (BMI) Body height Body weight Provider Name and Address Organization Details Last Updated DateTime 04/17/2021 28.4 kg/m2 167.64 cm 26382.26 g Not Available [facility] 01/12/2023 13:29:32 Date Recorded Body mass index (BMI) Body height Body weight Provider Name and Address Organization Details Last Updated DateTime 05/22/2021 29.2 kg/m2 167.64 cm 14909.22 g Not Available [facility] 01/12/2023 13:29:32 Date Recorded Body mass index (BMI) Body height Body weight Provider Name and Address Organization Details Last Updated DateTime 08/03/2021 28.2 kg/m2 167.64 cm 50137.66 g Not Available [facility] 01/12/2023 13:29:32 Date Recorded Body height Body mass index (BMI) Body weight Provider Name and Address Organization Details Last Updated DateTime 11/04/2023 167.64 cm 25 kg/m2 21088.82 g Lesley Navarrete, ATC L [facility] [employer] [facility] 11/04/2023 11:07:15 Date Recorded Body height Provider Name an d Address Organization Details Last Updated DateTime 01/25/2024 167.64 cm VIKAS Mann [employer] [facility] [employer] [facility] 01/25/2024 11:42:04 Social History Question Answer Notes LastModified by Organizat ion Details LastModified Time Tobacco Smoking Status Never Smoker Lesley Navarrete, ATC L null, [employer] [facility] [employer] [facility] 11/04/2023 11:10:36 What Is Your Level Of Alcohol Consumption? None [email or web address] Information not available 11/04/2023 Sex: Unknown Functional Status None recorded. Mental Status None recorded. Family History Relationship Description Onset Age of this Age Resolved Age Notes LastModified by Organization Details LastModified Time Father Heart disease [email or web address] Not available 10/15 11:09:13 Father Hypertensive disorder [email or web address] Not available 10/15 11:10:03 Mother Heart disease [email or web address] Not available 10/15 11:09:13 Mother Hypertensive disorder [email or web address] Not available 10/15 11:10:03 Mother Diabetes mellitus [email or web address] Not available 10/15 11:10:24 Daughter Heart disease [email or web address] Not available 10/15 11:09:13 Daughter Hypertensive disorder [email or web address] Not available 10/15 11:10:03 Daughter Diabetes mellitus [email or web address] Not available 10/15 11:10:24 Unspecified Relation Family history of malignant neoplasm UNCLE [email or web address] Not available 10/15 11:09:31 Brother Hypertensive disorder [email or web address] Not available 10/15 11:10:03 Sister Hypertensive disorder [email or web address] Not available 10/15 11:10:03 Notes:Hep C Medical History No medical history recorded. Gynecological HistoryNo gynecological history recorded. Obstetrics History GPAL:G 0 P 0 0 0 0 Past Encounters Encounter ID Performer Location Encounter Start Date Encounter Closed Date Diagnosis/Indication Diagnosis SNOMED-CT Code Diagnosis ICD10 Code Diagnosis Note [id number] [facility] [place] [address] [place] [address] 04/17/2021 00:00:00 04/17/2021 14:53:37 [id number] [facility] [place] [address] [place] [address] 05/22/2021 00:00:00 05/22/2021 15:24:51 [id number] [facility] [place] [address] [place] [address] 08/03/2021 00:00:00 08/03/2021 10:04:03 [id number] HUA Arenas [facility] [place] [address] [place] [address] 11/04/2023 10:39:06 11/04/2023 12:04:19 Pain of left hand 9421031851 53332 M79.642 Acquired t production technologist finger of left index finger 0017996439 21906 M65.322 Acquired t production technologist finger of left little finger 5785666918 95391 M65.129 [id number] HUA [place] [facility] [place] [address] [place] [address] 01/25/2024 11:39:07 01/25/2024 12:01:34 Trigger finger of right hand 6531282744 7649299 M65.322 Acquired t production technologist finger of left little finger 2417202270 85740 M65.352 Health Concerns Section Related Observation LastModified by Organization Detai ls LastModified Time None Recorded Concern Status LastModified by Organization Details LastModified Time None Recorded Advance Directives Directive None Recorded Payers Encounter Date Sequence Insurance Name Policy Number Policy Page Covered Member ID Page Member ID Guarantor Name 11/04/2023 1 [employer] (MEDICARE REPLACEMENT HMO) [id number] Nakia P Kristin [id number] Nakia Kristin 01/25/2024 1 [employer] (MEDICARE REPLACEMENT HMO) [id number] Nakia P Kristin [id number] Nakia Kristin Notes Date Note Type Note Provider Name and Address Organization Details Recorded Time 11/04/2023 text/html Patient returns with new problems today. She has 2nd and 5th left finger triggering. Patient states when she wakes up in the morning her 2nd and 5th fingers are locked into a flexed position to the point where it is too painful to try to push them back out into extension. She runs them under hot water massages that area and then works on motion and finally gets her fingers on locked. She demonstrates triggering and catching with flexion extension today. She is very tender over the A1 serafin sites both of these fingers and flexor tendon sheaths. Denies any trauma or injury. No effusion or swelling no erythema heat or other signs of infection. She does have a history of diabetes but does not smoke at least not for many years. She states she has had a left 4th trigger finger that was treated several years ago with a shot of cortisone which she states was very painful and really did nothing for her. She ended up having surgical intervention on this left 4th finger was very pleased with it at this point she has been dealing with this for a few months now and only seems to be getting worse with time. She does not want to go through the cortisone injection she just wants the surgically fixed. Today Dr. Ambriz came into the room for consultation as well he exam the patient agrees with the above findings, she has left 2nd and 5th trigger fingers and has agreed to proceed with surgical intervention.Past medical history sheet was reviewed and signed on intake sheet today's date drug allergies current medications family social history previous surgical history 10 point review of systems was reviewed and discussed in detail today with the patient. HUA Arenas [address] [facility], [facility] [address], [place], [address], [facility] 11/04/2023 12:09:17 OBGyn Episode No OBEpisode recorded.
== END 2025-03-07 14:18 | disposition home or self-care (01) ==
PROVIDERS: PCP Nurse Practitioner Family; Visit Provider Nurse Practitioner Family
DX: M79.604 Pain in right leg (principal); M79.605 Pain in left leg; I87.2 Venous insufficiency (chronic) (peripheral)
CPT/HCPCS: 93970

== ENCOUNTER 2025-03-28 11:12 | Outpatient (CLI) | payer OTHER, SELFPAY ==
--- NOTE | ~2025-03-28 | DEXA_ITS ---
Bone Density Report Name: HOLLIE GRANADO Age: 74 Sex: Female Ethnicity: White Date of : 1950 Indication: postmenopausal osteoporosis; monitoring treatment; height loss; prior fracture; hysterectomy; Referring Provider: AMELIE BLAIR Study: Bone densitometry was performed. Exam Date: March 28, 2025 Accession number: [id number] Bone Density: Region BMD T-score Z-score Classification AP Spine(L1-L4) 0.956 -0.8 1.5 Normal Femoral Neck (Left) 0.399 -4.0 -2.0 Osteoporosis Total Hip (Left) 0.484 -3.8 -2.0 Osteoporosis World Health Organization criteria for BMD impression classify patients as: Normal (T-score at or above -1.0), Osteopenia (T-score between -1.0 and -2.5), or Osteoporosis (T-score at or below -2.5). 10-year Fracture Risk: FRAX not reported because: Some T-score for Spine Total or Hip Total or Femoral Neck at or below -2.5 Prior hip or vertebral fracture Treated for osteoporosis Previous Exams: -- Region Exam Age BMD T-score BMD Change BMD Change Date g/cm2 vs Baseline vs Previous -- AP Spine (L1-L4) 03/28/2025 74 0.956 -0.8 -3.8%# 2.0% 07/08/2022 72 0.937 -1.0 -5.7%# -5.7%# 01/04/2011 60 0.993 -0.5 Total Hip(Left) 03/28/2025 74 0.484 -3.8 -42.7%# -10.4%* 07/08/2022 72 0.540 -3.3 -36.1%# -36.1%# 01/04/2011 60 0.845 -0.8 -- *Denotes significance at 95% confidence level, LSC for AP Spine = 0.022 g/cm2, LSC for Total Hip = 0.027 g/cm2 # Denotes dissimilar scan types or analysis methods Clinical Information Provided by Patient: Have had a previous hip or vertebral fracture Has had a low trauma fracture Is being treated for osteoporosis Has used the following medications: HRT (i.e. estrogen/hormone therapy), Vitamin D, Evenity. HRT after Hysterecomty Has the following medical conditions: Hysterectomy Patient maximum height was 69.0 Menopause Age: 45 No regular weight bearing exercise Drinks caffeinated beverages Onset of menses at age 13 Number of children 3 Impression: The patient has established osteoporosis, based on the Left Femoral Neck T-score and the existence of a prior fracture. The patient has risk factors, including: previous fracture. The BMD for the Total Hip(Left) decreased, changing by -10.4% since the last DXA exam. Discussion: SIGNIFICANT BONE LOSS OBSERVED. Adherence to therapy (including calcium and vitamin D intake) should be assessed. If compliance is not a factor, review management and exclusion of secondary causes of bone loss. It is important to ask patients whether they are taking their medications and to encourage continued and appropriate compliance with their osteoporosis therapies to reduce fracture risk. It is also important to review their risk factors and encourage appropriate calcium and vitamin D intakes, exercise, fall prevention and other lifestyle measures. Follow-Up: Consider a repeat BMD and Vertebral Fracture Assessment (VFA) exam in 2 years or sooner if medically necessary, to reassess this patient's status. Reported by: LISBETH on 04/03/2025 8:55:00 AM. Reviewed, dictated and finalized at location A.
== END 2025-03-28 11:13 | disposition home or self-care (01) ==
LOC: MICIMG 11:13
PROVIDERS: PCP Nurse Practitioner Family; Visit Provider Nurse Practitioner Family
DX: M81.0 Age-related osteoporosis without current pathological fracture (principal)
CPT/HCPCS: 77080

== ENCOUNTER 2025-04-16 10:27 | Outpatient (CLI) | payer OTHER, SELFPAY ==
--- NOTE | ~2025-04-16 | XR_ITS ---
Thoracic spine: Clinical Indication: Osteoporosis AP and lateral views were performed. No fracture is seen. There is normal alignment of the vertebrae. Multilevel mild degenerative disc n arrowing present. Paravertebral soft tissues appear normal. Impression: No fracture evident. Multilevel mild degenerative disc narrowing. Reviewed, dictated and finalized at [facility]. Impression: No fracture evident. Multilevel mild degenerative disc narrowing.
--- NOTE | ~2025-04-16 | XR_ITS ---
Lumbosacral Spine: AP and lateral views Clinical History: Pain Findings: There is mild dextroscoliosis. No fracture evident. There is grade 1 anterolisthesis of L4 over L5. There is severe facet arthropathy throughout the lumbar spine. There is probable generalized osteopenia. The sacroiliac joints are normally outlined. Impression: No fracture. Grade 1 anterolisthesis of L4 over L5. Dextroscoliosis. Extensive facet arthropathy. Reviewed, dictated and finalized at location . Impression: No fracture. Grade 1 anterolisthesis of L4 over L5. Dextroscoliosis. Extensive facet arthropathy.
== END 2025-04-16 10:28 | disposition home or self-care (01) ==
LOC: MICIMG 10:30
PROVIDERS: PCP Nurse Practitioner Family
DX: M81.0 Age-related osteoporosis without current pathological fracture (principal)
CPT/HCPCS: 72070; 72100

== ENCOUNTER 2025-08-20 08:05 | Outpatient (CLI) | payer OTHER, SELFPAY ==
--- OUTSIDE RECORDS SUMMARY | 2025-08-20 08:13 | XMS_ITS | Encounter Summary ---
Author Organization [facility] Address [address] [place] [address] Care Team Providers Care Embroiderer Hand Name Role Phone Steve Malloy MD Unavailable [phone] Fred Eng MD Primary Care Provider Khushi Koenig MD Unavailable [phone] Zia Nugent MD Unavailable [phone] Jani Valadez MD Primary Care Provider [phone] Arvind Murrell MD Primary Care Provider [phone] Encounter Details Date Type Department Care Team (Late st Contact Info) Description 06/28/2014 Therapy Visit [facility] Orthopedics [id number] [address] [place] [address] [address] Social History Tobacco Use Types Packs/Day Years Used Date Smoking Tobacco: Former Cigarettes 0 11/14/1954 - 11/14/1989 Smokeless Tobacco: Never Comments:2 packs per week Alcohol Use Standard Drinks/Week Comments No 0 (1 standard drink = 0.6 oz pur e alcohol) Comments No Sex and Gender Information Value Date Recorded Sex Assigned at Not on file Legal Sex Female 6:29 AM IMPROVEMENT AUDITOR Gender Identity Not on file Sexual Orientation Not on file documented as of this encounter Plan of Treatment Not on file documented as of this encounter Visit Diagnoses Not on filedocumented in this encounter Care Teams Embroiderer Hand Relationship Specialty Start Date End Date Fred Eng MD PCP - General Internal Medicine 04/18/12 11/09/21 [place] [address] [address] PCP - General Internal Medicine 12/15/22 07/11/23 Arvind Murrell MD [address] [place] [id number] PCP - General Family Medicine 07/12/23 Steve Malloy MD Orthopedic Surgery 04/18/12 [place] [address] [place] [address] Orthopedic Surgery 03/20/14 [place] [address] [place] [address] Anesthesiology-Pain Management 12/10/14 documented as of this encounter
--- OUTSIDE RECORDS SUMMARY | 2025-08-20 08:13 | XMS_ITS | Clinical Summary ---
Author Organization [facility] Address [address] [place] [address] Care Team Providers Care Office Nurse Practitioner Name Role Phone Harshal Mark MD Primary Care Provider [phone] Immunizations Immunization Administration Dates Next Due MODERNA [...] Scan (General) 2016 COVID-19 Vaccine (3 - 2024-2 6 season) 2025 12/30/2020, 12/02/2020 Influenza Adult (#1) 2025 RSV Immunization or 60+ Years (1 - [...] age to complete this topic Care Teams Office Nurse Practitioner Relationship Specialty Start Date End Date Harshal Mark MD [address] [address] PCP - General 07/28/11
--- OUTSIDE RECORDS SUMMARY | 2025-08-20 08:13 | XMS_ITS | Clinical Summary ---
Author Organization [facility] Address [address] [place] [address] Care Team Providers Care Cuff Turner Machine Operator Name Role Phone Steve Malloy MD Unavailable [phone] Khushi Koenig MD Unavailable [phone] Zia Nugent MD Unavailable [phone] Arvind Murrell MD Primary Care Provider [phone] Source Comments [facility],non-owned Affiliates and Associated Physician Practices is amultiple site organization consisting of ambulatory clinics and hospital sitesin [place], [place], [place] and [place]. This disclosure is being madepursuant to the Care Everywhere program and may not contain all information available regarding this patient. Last updated 18.[facility] Allergies Active Allergy Reactions Criticality Noted Date [...] Active Cholecalcifero l (VITAMIN D3) 1.25 MG (55975 UT) capsule 1 (one) capsule every 7 days 2 Active romosozumab-aq qg (Evenity) injection Inject 2.34 mL subcutaneously once Monthly Active HYDROcodone-ac etaminophen (Mcgraw) 5-325 MG tablet Take 1 (one) tablet [...] leg 04/18/2012 Overview (02/07/2016): 2015 IMO Updt Encounters Date Type Department Care Team Description 06/04/2025 3:25 PM CDT Ancillary Procedure [facility] Orthopedics - Radiology [address] [place] [address] Steve Malloy MD Right knee pain, unspecified chronicity 06/04/2025 3:00 PM CDT Office Visit [facility] Orthopedics [address] [place] [address], [address] [place] [address] Steve Malloy MD Right knee pain, unspecified chronicity (Primary Dx) from Last 3 Months Family History Medical [...] on file Legal Sex Female 6:29 AM COMMERCIAL FINANCE ANALYST Gender Identity Not on file Sexual Orientation Not on file Last Filed Vital Signs Vital Sign Reading Time Taken Comments Blood Pressure 125/64 10/01/2022 9:35 AM COMMERCIAL FINANCE ANALYST Pulse 78 10/01/2022 9:35 AM COMMERCIAL FINANCE ANALYST Temperature 35.8 C (96.5 F) 10/01/2022 9:24 AM COMMERCIAL FINANCE ANALYST Respiratory Rate 16 10/01/2022 9:35 AM COMMERCIAL FINANCE ANALYST Oxygen Saturation 91% 10/01/2022 9:35 AM COMMERCIAL FINANCE ANALYST Inhaled Oxygen Concentration - - Weight 79.4 kg (175 lb) 01/10/2023 8:07 AM COMMERCIAL FINANCE ANALYST Height 167.6 cm (5' 6) 01/10/2023 8:07 AM COMMERCIAL FINANCE ANALYST Body Mass Index 28.25 01/10/2023 8:07 AM COMMERCIAL FINANCE ANALYST Plan of Treatment Health Maintenance Due Date Last Done Comments COLOGUARD (AGES 45-75) - COL ON CA SCREENING 1950 COLON MONITORING 1950 COLONOSCOPY [...] 2001 ZOSTER VACCINE (1 of 2) 2001 Respiratory Syncytial Virus (RSV) Vaccine Pt: or over 60 yrs (1 - Risk 60-74 years 1-dose series) 2011 DEPRESSION SCREENING 11/14/2024 09/21/2023 COVID-19 VACCINE (3 - 2024-2 6 season) 2025 12/30/2020, 12/02/2020 INFLUENZA VACCINE (#1) 2025 BONE DENSITY TESTING Completed 11/30/2023, 08/17/2022, 07/08/2022 [...] A/C/Y/W VACCINE Aged Out No longer eligible b ased on patient's age to complete this topic Medical Devices Implanted Type Area Tower Erector Helper Device Identifier Shelf Expiration Date Model / Serial / Lot Joe Bone [place] Hv Implanted:Qty: 1 on 09/20/2013 by Steve Mlaloy MD at [facility] Left: Knee [employer] 04/12/2015 [id number] / / [id number] Luís Matute Arcom Wire Polyeth Sm 31 X 8mm Implanted:Qty: 1 on 09/20/2013 by Steve Malloy MD at [facility] Left: Knee [employer] 07/13/2018 [id number] / / [id number] Ins Liliane Khoury Fem Cocr L-Intlok 65.0mm Implanted:Qty: 1 on 09/20/2013 by Steve Malloy MD at [facility] Left: Knee [employer] 08/13/2023 [id number] / / [id number] Ty Tibial I Beam Fix Bar 71mm Implanted:Qty: 1 on 09/20/2013 by Steve Malloy MD at [facility] Left: Knee [employer] 07/13/2023 [id number] / / [id number] Brdg Tib Anaya Stbl 12mm X 71mm Implanted:Qty: 1 on 09/20/2013 by Steve Malloy MD at [facility] Left: Knee [employer] 09/12/2018 [id number] / / [id number] Head Hum 18mm 46mm 42mm Shldr Cmprh Implanted:Qty: 1 on 03/12/2022 by Khushi Koenig MD at [facility] Left: Shoulder Roxana [employer] 08/31/2031 [id number] / / [id number] Adpr Head Ti Std Tpr Cmprh Versa-Dial Implanted:Qty: 1 on 03/12/2022 by Khushi Koenig MD at [facility] Left: Shoulder [employer] 08/21/2031 [id number] / / [id number] Joe Bone [place]-G Hv 40/20 Implanted:Qty: 1 on 03/12/2022 by Khushi Koenig MD at [facility] Left: Shoulder [employer] 06/23/2023 [id number] / / [id number] Cmpnt Glnd Post Mdmiles Aln Strl Lf Implanted:Qty: 1 on 03/12/2022 by Khushi Koenig MD at [facility] Left: Shoulder [employer] 03/21/2031 [id number] / / [id number] Cmpnt Glnd 2 4 Pg Mdmiles Aln Shldr Strl Lf Implanted:Qty: 1 on 03/12/2022 by Khushi Koenig MD at [facility] Left: Shoulder [employer] 04/06/2029 [id number] / / [id number] Stem Hum W/Align Tpr 45deg 13mm X 140mm Implanted:Qty: 1 on 03/12/2022 by Khushi Koenig MD at [facility] Left: Shoulder [employer] 09/01/2031 [id number] / / [id number] Cmpnt Glnd 36mm Std Glenosphere Clr Cd Implanted:Qty: 1 on 10/01/2022 by Khushi Koenig MD at [facility] Right: Shoulder [employer] 06/12/2032 [id number] / / [id number] Bsplt Glnd Cmprh 25 Mm Mini Shldr Tpr Ad Implanted:Qty: 1 on 10/01/2022 by Khushi Koenig MD at [facility] Right: Shoulder [employer] 07/28/2032 [id number] / / [id number] Screw 6.5mm 25mm 3.5mm Cntr Hex Shldr Implanted:Qty: 1 on 10/01/2022 by Khushi Koenig MD at [facility] Right: Shoulder [employer] 07/27/2032 [id number] / / [id number] Tray Hum Cmprh +6mm Std Shldr Rvrs Implanted:Qty: 1 on 10/01/2022 by Khushi Koenig MD at [facility] Right: Shoulder [employer] 08/01/2032 [id number] / / [id number] Screw 4.75mm 25mm 3.5mm Lck Fx Ang Hex Implanted:Qty: 1 on 10/01/2022 by Khushi Koenig MD at [facility] Right: Shoulder [employer] 06/19/2032 [id number] / / [id number] Screw 4.75mm 20mm 3.5mm Lck Fx Ang Hex Implanted:Qty: 1 on 10/01/2022 by Khushi Koenig MD at [facility] Right: Shoulder [employer] 05/05/2032 [id number] / / [id number] Screw 4.75mm 20mm 3.5mm Lck Fx Ang Hex Implanted:Qty: 1 on 10/01/2022 by Khushi Koenig MD at [facility] Right: Shoulder [employer] 05/01/2032 [id number] / / [id number] Screw 4.75mm 15mm 3.5mm Lck Fx Ang Hex Implanted:Qty: 1 on 10/01/2022 by Khushi Koenig MD at [facility] Right: Shoulder [employer] 05/24/2032 [id number] / / [id number] Brng Hum 36mm Cmprh Std Shldr Vivacit-E Implanted:Qty: 1 on 10/01/2022 by Khushi Koenig MD at [facility] Right: Shoulder [employer] 07/27/2027 [id number] / / [id number] Stem Hum W/Align Tpr 45deg 12mm X 55mm Implanted:Qty: 1 on 10/01/2022 by Khushi Koenig MD at [facility] Right: Shoulder [employer] 03/10/2032 [id number] / / [id number] Explanted Type Area Tower Erector Helper Device Identifier Shelf Expiration Date Model / Serial / Lot Pin Fx 9in 3.2mm Stnm Explanted:Qty: 1 on 03/12/2022 at [facility] Left: Shoulder [employer] [id number] / / [id number] Pin Fx 9in 3.2mm Stnm Explanted:Qty: 1 on 10/01/2022 at [facility] Right: Shoulder [employer] [id number] / / [id number] Procedures Procedure Name Priority Date/Time Associated Diagnosis Comments XR KNEE RIGHT 3VW Routine 06/04/2025 3:2 7 PM CDT Right knee pain, unspecified chronicity DEXA BONE DENSITY AXIAL SKELETON Routine 11/30/2023 10:42 AM COMMERCIAL FINANCE ANALYST Postmenopausal osteoporosis Taking medication for chronic disease from Last 3 Months or Most Recently Relevant to Health Maintenance Results * XR Knee Right 3Vw (06/04/2025 3:27 PM CDT) Narrative [facility] [address] - 06/04/2025 3:29 PM CDT Please see progress note in Epic for results. us Steve Malloy MD DIAGNOSTIC IMAGING ORDERABLES Final Result [facility] [address] * DEXA BONE DENSITY AXIAL SKELETON (11/30/2023 10:42 AM COMMERCIAL FINANCE ANALYST) Anatomical Region Laterality Modality Mammography 11/30/2023 11:1 5 AM COMMERCIAL FINANCE ANALYST Narrative 11/30/2023 11:16 AM COMMERCIAL FINANCE ANALYST PROCEDURE: DEXA BONE DENSITY AXIAL SKELETON, DATE/TIME OF EXAM: 11/30/2023 10:42 AM, LOCATION [facility] INDICATION: M81.0: Age-related osteoporosis without current pathological [...] SKELETON, DATE/TIME OF EXAM:11/30/2023 10:42 AM, LOCATION [facility] INDICATION: M81.0: Age-related osteoporosis without current pathological [...] MD on 11/30/2023 11:16 AM Ted Castaneda FIRE ALARM OPERATOR-ACID PUMPER DEXA ORDERABLES Final R esult from Last 3 Months or Most Recently Relevant to Health Maintenance Insurance [employer] ADV PPO Advance Directives * Full Code (Latest Code Status on File) Date Activated Date Inactivated Comments 03/12/2022 12:36 PM 03/13/2022 3:57 PM * FULL RESUSCITATION Date Activated Date Inactivated Comments 09/20/2013 12:12 PM 09/24/2013 9:31 AM Care Teams Cuff Turner Machine Operator Relationship Specialty Start Date End Date Arvind Murrell MD [address] [place] [id number] PCP - General Family Medicine 07/12/23 Steve Malloy MD Orthopedic Surgery 04/18/12 [place] [address] [place] [address] Orthopedic Surgery 03/20/14 [place] [address] [place] [address] Anesthesiology-Pain Management 12/10/14
--- OUTSIDE RECORDS SUMMARY | 2025-08-20 08:13 | XMS_ITS | Clinical Summary ---
Author Hub Preferred Language Unknown Marital Status Rastafari Affiliation Unknown Race White Ethnic Group Unknown Author Organization [facility] Address [address] [place] [address] Care Team Providers Care Steam Engineer Name Role Phone Arvind Murrell MD Primary Care Provider [phone] Allergies Active Allergy Reactions Criticality Noted Date [...] 04/04/20 23 Active iron/lysine/vit B comp/zinc (IRON-B [id number]-UT NC ORAL) Take by mouth. Activ e cannabidiol, CBD, product, for documentation purposes, Take by mouth. Activ e ferrous sulfate (FEOSOL) 300 mg (60 mg iron)/5 mL solution Take 5 mL (300 mg) by mouth daily. 150 mL 3 04/20/20 24 Active Active Problems No known active problems Encounters Date Type Department Care Team Description 07/09/2025 Orders Only [facility] Oncology and Hematology - Sp [address] [place] [address] Zia Mitchell MD Chronic anemia (Primary Dx) from Last 3 Months Family [...] 10:31 AM CDT Height 167.6 cm (5' 6) 10/24/2023 3:10 PM TURN OUT Body Mass Index 23.24 10/24/2023 3:10 PM TURN OUT Plan of Treatment Upcoming Encounters Date Type Department Care Team (Late st Contact Info) Description 09/04/2025 11:15 AM CDT Office Visit [facility] H[facility] - Sp [address] [place] [address] Zia Mitchell MD [address] [place] [address] Health Maintenance Due Date Last Done Comments DTAP/TDAP/TD VACCINES (1 - Tdap) 1970 BREAST CANCER SCREENING 1991 COLORECTAL SCREENING 1996 Colorectal Cancer Screening 1996 FIT-DNA Q 3 years 1996 FIT/FOBT Q 1 year 1996 Flex Sig/CT Colonography Q 5 years 1996 PNEUMOCOCCAL VACCINE 50+ YEA RS (1 of 1 - PCV) 2001 ZOSTER VACCINE (1 of 2) 2001 INFLUENZA VACCINE (#1) 2025 COVID-19 Vaccine (3 - 2024- season) 2025, 12/02/2020 RSV VACCINE (60+ or ) (1 - 1-dose 75+ series) 2026 OSTEOPOROSIS SCREENING 11/30/2028 , 11/30/2023, 07/08/2022 Insurance [facility] Address: [place] [address] Care Teams Steam Engineer Relationship Specialty Start Date End Date Arvind Murrlel MD [address] [place] [address] PCP - General Family Practice 10/24/23
--- OUTSIDE RECORDS SUMMARY | 2025-08-20 08:13 | XMS_ITS | Patient Health Record ---
Author Organization [facility] Address [address] [place], [place] [id number] Care Team Providers Care Cso Name Role Phone DAYSI MARTINS Unavailable [phone] Fred Eng Unavailable Unavailable Reason For Referral No Information Medications Medication SIG (Take, Route, Frequency, Duration) Notes Start Date End Date Status Nabumetone 500 MG Oral Tablet ORAL nabumetone 500 MG Oral TabletOriginal Medicationnabumetone 500 MG Oral Tablet *Reorder from [employer] for eRx and Interaction Alerts* 03/08/2013 Active Plan Of Treatment No Information Insurance Providers Payer Name Payer Address Payer Phone Subscriber Number Group Number Insured Name Patient Relationship to Insured Coverage Start Date Coverage End Date [facility] [address] [address] [place] [address] [id number] HOLLIE GRANADO Self - patient is the insured
--- OUTSIDE RECORDS SUMMARY | 2025-08-20 08:13 | XMS_ITS | Clinical Summary ---
Author Organization [facility] Address [address] [place] [address] Care Team Providers Care Barista Name Role Phone Ovidio Murrell MD Primary Care Provider Allergies Active Allergy Reactions Criticality Noted Date Comments Atorvastatin Cough Low 12/25/2013 Rosuvastatin Muscle pain Medium 12/25/2013 Medications simethicone (GAS-X EXTRA STRENGTH) 125 mg capsule unsure med dosage prn Active cholecalciferol (VITAMIN D-3) 10,000 unit tablet unsure med dosage qd Active biotin 300 mcg tablet 300 mcg. Active HYDROcodone-acetami nophen (NORCO) 5-325 mg per tabletIndications:P ain Take 1 tablet by mouth every 6 (six) hours as needed Active omeprazole (PriLOSEC) 40 mg capsule Take 1 capsule (40 mg total) by mouth daily 3 Active irbesartan-hydroCHL OROthiazide (AVALIDE) 300-12.5 mg per tablet Take 1 tablet by mouth daily Active famotidine (PEPCID) 20 mg tablet TAKE 1 TABLET BY MOUTH TWICE DAILY FOR 2 WEEKS 3 Active calcium-vitamin D3-vitamin K 500-100-40 mg-unit-mcg tablet,chewable [...] injector injection Inject under the skin Active diclofenac DR (VOLTAREN) 75 mg EC tablet Take 1 tablet (75 mg total) by mouth 2 (two) times a day Active escitalopram (LEXAPRO) 20 mg tablet Take 1 tablet (20 mg total) by mouth daily Active ferrous sulfate syrup 300 mg/5 mL Take 5 mL (300 mg total) by mouth daily 4 Active gabapentin, bulk, 100 % powder 1 5 Active ondansetron ODT (ZOFRAN-ODT) 4 mg disintegrating tablet DISSOLVE 1 TABLET IN MOUTH EVERY 6 HOURS NEEDED FOR NAUSEA AND VOMITING FOR 30 DAYS Active amitriptyline (ELAVIL) 25 mg tablet Take 1 tablet (25 mg total) by mouth nightly at bedtime 5 Active ergocalciferol (VITAMIN D) 50,000 unit capsule Take 1 capsule (50,000 Units total) by mouth once a week Active Forteo 20 mcg/dose (560mcg/2.24mL) injectionIndication s:Age-related osteoporosis without current pathological fracture Inject 0.08 mL (20 mcg total) under the skin daily 2.4 mL 11 5 04/25/20 26 Active pen needle, diabetic 31 gauge x 01/27 needleIndications:A ge-related osteoporosis without current pathological fracture USE DAILY WITH FORTEO PEN 100 each 1 5 Active Active Problems Problem Noted Date [...] obesity (HCC) Depression Type 2 diabetes mellitus Sleep apnea Intestinal malabsorption Family History Medical History Relation Name Comments Heart disease Father Family history of cardiac disorder - (Added by Conv) Hypertension Father Family history of hypertension - (Added by Conv) Obesity Father Family history of obesity - (Added by Conv) Osteoporosis Maternal Grandmother Depression Mother Family history of depression - (Added by Conv) Diabetes Mother Family history of diabetes mellitus - (Added by Conv) Heart disease Mother Family history of cardiac disorder - (Added by Conv) Hypertension Mother Family history of hypertension - (Added by Conv) Obesity Mother Family history of obesity - (Added by Conv) Osteoporosis Mother Stroke Mother Family history of cerebrovascular accident (CVA) - (Added by Conv) Osteoporosis Sister Vanda Broken bones Neg Hx Hip fracture Neg Hx Kyphosis Neg Hx Scoliosis Neg Hx Relation Name Status Comments Father Maternal Grandmother Alive Mother Sister Vanda Social History Tobacco Use Types Packs/Day Years Used Date Smoking Tobacco: Former Smokeless Tobacco: Never Tobacco Cessation:Counseling Given: Not Answered Comments Unknown Sex and Gender Information Value Date Recorded Sex Assigned at Not on file Legal Sex Female 9:13 PM [employer] Gender Identity Not on file Sexual Orientation Straight 04/14/2025 5: 10 PM CDT Obstetrics History Last Filed Vital Signs Vital Sign Reading Time Taken Comments Blood Pressure 135/78 08/15/2023 11:24 AM CDT Pulse 99 08/15/2023 11:24 AM CDT Temperature 36.6 C (97.9 F) 05/19/2018 9:48 AM CDT Respiratory Rate - - Oxygen Saturation 99% 08/15/2023 11:24 AM CDT Inhaled Oxygen Concentration - - Weight 60.4 kg (133 lb 1.6 oz) 04/16/2025 7:59 A M CDT Height 162.6 cm (5' 4) 04/16/2025 7:59 AM CDT Body Mass Index 22.85 04/16/2025 7:59 AM CDT Plan of Treatment Health Maintenance Due Date Last Done Comments Breast Cancer Screening-Mammogram 1950 Colon Cancer Screening-Colonoscopy 1950 Depression Screening 1950 Fall Risk Assessment 1950 Hepatitis C Screening 1950 DTaP/Tdap/Td Vaccine (1 - Tdap) 1962 Hepatitis B Screening 1969 Pneumococcal vaccine 65+ (1 of 1 - PCV) 2001 Zoster Vaccine (1 of 2) 2001 Well Visit 65+ 2016 Covid-19 Vaccine (3 - 2024-2 6 season) 2025 12/30/2020, 12/02/2020 Influenza Vaccine (#1) 2025 Osteoporosis Screening-Bone Density Scan 04/16/2027 04/16/2025, 11/30/2023, 11/30/2023, Additional history exists Procedures Procedure Name Priority Date/Time Associated Diagnosis Comments DEXA TBS AXIAL SKELETON BONE DENSITY 1 OR MORE SITES Schedule Routine, Read Routine (OP Routine) 04/16/2025 7:53 AM CDT Osteoporosis of multiple sites from Last 3 Months or Most Recently Relevant to Health Maintenance Results * Dexa TBS Axial Skeleton Bone Density 1 or more sites (04/16/2025 7:53 AM CDT) Anatomical Region Laterality Modality Wrist, Body N/A Radiographic Ros ging Narrative 04/16/2025 12:42 PM CDT Patient Name: Nakia Foster Date of : 1950 Date of scan: 04/16/2025 Bone mineral density was performed on a Hologic Discovery Densitometer. Based on machine cross-calibration and precision studies the least significant changes of this densitometer is 0.024 g/cm2 at the spine, 0.020 g/cm2 at the total proximal femur, and 0.014g/cm2 at the forearm. HISTORY: This is a 74 y.o. postmenopausal female with a history of asthma, osteoporosis, and vitamin D deficiency. She reports that she has quit smoking. She has never used smokeless tobacco. Currently on treatment with vitamin D, previously treated with romosozumab ([facility]) and hormone replacement therapy, and current complaint of arm pain, back pain, neck pain, and leg pain. INDICATIONS: Menopause status, history of prior right hip fracture, vitamin D deficiency, and history of osteoporosis. FINDINGS: BONE MINERAL DENSITY OF THE LUMBAR SPINE Bone Mineral Density (BMD) of the lumbar spine was measured from L1-L4 and the average density was calculated to be 0.978 gm/cm2. This corresponds to a T-score (standard deviations from the mean of young adults) of -0.6. There is no previous study available for comparison. BONE MINERAL DENSITY OF THE PROXIMAL FEMUR Bone Mineral Density (BMD) of the left hip total was found to be 0.475 gm/cm2. This corresponds to a T-score standard deviations from the mean of young adults of -3.8. Femoral neck is 0.404 gm/cm2 with a T-score (standard deviations from the mean of young adults) of -4.0. There is no previous study available for comparison. BONE MINERAL DENSITY OF THE FOREARM Bone Mineral density (BMD) of the left proximal 1/3 of the radius measures 0.442 gm/cm2. This corresponds to a T-score (standard deviations from the mean of young adults) of -4.2. There is no previous study available for comparison. A forearm bone density study was performed in addition to the routine study due to physician request SUMMARY: Bone mineral density shows evidence of osteoporosis and marked increase risk of fracture. The lumbar spine Trabecular Bone Score is 1.242 which suggests partially degraded bone microarchitecture compared to the general population. Final decisions regarding diagnostic or therapeutic recommendations should include BMD, TBS, additional clinical risk factors as well the clinical context of the patient. Please see attached TBS results for further details. ADDITIONAL COMMENTS: Postmenopausal Women and Men Over 50: Diagnostic criteria: Osteoporosis: BMD at or below -2.5 T-score; Osteopenia (low bone mass): BMD between -1.0 and -2.5 T-score. If the patient has a history of a fragility fracture, a fracture that occurred with trauma equivalent to a fall from a standing position or less, then the diagnosis is osteoporosis regardless of bone density. The history and data sections of the bone mineral density scan were prepared by Deanne Wilkins) JASON who is accredited by the International Society of Clinical Densitometry. The overall patient assessment and scan interpretation were performed by Lanny Hall M.D. who is certified by the International Society of Clinical Densitometry. [id number] Lanny Hall MD IMG DXA PROCEDURES Final Resu lt from Last 3 Months or Most Recently Relevant to Health Maintenance Insurance [address] [id number] [facility] ADVANTAGE CHOICE PPO [facility] ADVANTAGE CHOICE PPO Care Teams Barista Relationship Specialty [place] [id number] [place] [address] PCP - General Orthopedic Surgery 07/20/23
--- NOTE | 2025-08-20 08:45 | ECG_ITS ---
Test Date: 2025-08-20 09:01:03 Measurements Intervals [place] Rate: 66 P: 66 FL: 216 QRS: 12 QRSD: 75 T: 43 QT: 368 QTc: 386 Interpretive Statements SINUS RHYTHM WITH FIRST DEGREE AV BLOCK WITH OCCASIONAL SUPRAVENTRICULAR PREMATURE COMPLEXES BASELINE ARTIFACT- I, II, III, V3-V6 BORDERLINE ECG No previous ECG available for comparison Electronically Signed On 08-20-2025 09:04:20 CDT by Luis Miguel Iverson D.O.
== END 2025-08-20 08:06 | disposition home or self-care (01) ==
LOC: ANHCARD 08:07
PROVIDERS: PCP Nurse Practitioner Family; Visit Provider Nurse Practitioner Family
DX: R42 Dizziness and giddiness (principal)
CPT/HCPCS: 93005

== ENCOUNTER 2025-08-21 07:38 | Outpatient (CLI) | payer OTHER, SELFPAY ==
--- NOTE | ~2025-08-21 | CT_ITS ---
EXAMINATION: CTA brain carotid DATE: 08/21/2025 08:20 INDICATION: Headache, unspecified. TECHNIQUE: Computed tomographic angiography (CTA) of the head was performed without and with 100 mL Omnipaque-350 intravenous contrast. CTA of the neck was performed with intravenous contrast. Automated exposure control and iterative reconstruction technique were employed. The dose-length product was 1595.09 mGy- cm. Maximum intensity projection and volume rendered 3D-reconstructions were created by the technologist on a separate workstation. COMPARISON: Head CT 08/26/2023 FINDINGS: HEAD CTA: There are scattered areas of low attenuation in the cerebral white matter, which is within normal limits for the patient's age. There is no intracranial hemorrhage, acute infarction, or abnormal intracranial mass lesion. The ventricles are normal in size. There is mild mucosal thickening in the paranasal sinuses. There are likely changes of ocular lens replacement surgeries. The mastoid air cells are normal. The vertebral arteries are codominant. There is no significant stenosis of basilar artery or the posterior cerebral arteries. There is no significant stenosis of the intracranial internal carotid arteries or the anterior or middle cerebral arteries. Anterior communicating artery is normal. The posterior communicating arteries are normal. There is no aneurysm. NECK CTA: There is a bleb at right lung apex. Calcified right hilar lymph nodes are consistent with old granulomatous disease. There is an aberrant right subclavian artery. There are no pathologically enlarged lymph nodes. There are nodules in the thyroid measuring up to 10 mm, likely not clinically significant. There is no significant stenosis of the vertebral arteries. There is plaque in the proximal internal carotid arteries. There is 0% stenosis of the proximal right internal carotid artery relative to normal distal artery lumen diameter (NASCET criteria). There is 0% stenosis of the proximal left internal carotid artery relative to normal distal artery lumen diameter. There is severe cervical spondylosis. There is a chronic compression fracture of T2. IMPRESSION: 1. Normal aging brain. 2. No aneurysm or significant intracranial arterial stenosis. 3. 0% stenosis of the proximal internal carotid arteries relative to normal distal artery lumen diameters (NASCET criteria). Reviewed, dictated and finalized at location E. IMPRESSION: 1. Normal aging brain. 2. No aneurysm or significant intracranial arterial stenosis. 3. 0% stenosis of the proximal internal carotid arteries relative to normal dis newton artery lumen diameters (NASCET criteria).
[2025-08-21 08:06] LABS: Estimated Glomerular Filt Rate > 60
== END 2025-08-21 07:39 | disposition home or self-care (01) ==
PROVIDERS: PCP Nurse Practitioner Family; Visit Provider Nurse Practitioner Family
DX: R51.9 Headache, unspecified (principal); H53.9 Unspecified visual disturbance; R42 Dizziness and giddiness; R53.1 Weakness; H02.401 Unspecified ptosis of right eyelid
CPT/HCPCS: 70496; 70498; Q9967

== ENCOUNTER 2025-08-23 10:42 | Outpatient (CLI) | payer OTHER, SELFPAY ==
--- NOTE | ~2025-08-23 | MR_ITS ---
EXAMINATION: MR brain/brain stem wo/w con DATE: 08/23/2025 12:02 INDICATION: Headache, dizziness, weakness and giddiness TECHNIQUE: Magnetic resonance imaging (MRI) of the brain and brainstem was performed without and with 12 mL Multihance intravenous contrast. Sequences included sagittal and axial T1-weighted SE, axial diffusion-weighted FS SE, axial 3D SWAN, axial T2-weighted FLAIR, and axial T2-weighted FSE. Postcontrast axial and coronal T1-weighted SE was obtained. Apparent diffusion coefficient (ADC) maps were created. COMPARISON: Head CT and CT angiogram dated 08/21/2025 FINDINGS: There are no areas of restricted diffusion to suggest acute infarction. No intracranial hemorrhage or abnormal intracranial mass lesion. There are scattered areas of nonspecific increased T2-weighted signal intensity in the cerebral white matter, predominantly involving the deep and periventricular whi te matter which is within normal limits for age and likely sequela of chronic small vessel ischemic disease. There are no intraparenchymal signal abnormalities seen on the other pulse sequences. The ventricles are symmetric and normal in size. There are no abnormal extra-axial fluid collections. Flow v oids are seen in the cerebral arteries on the T2-weighted sequences consistent with their expected patency. Changes of bilateral intraocular lens replacement. Visualized orbits and soft tissues are unremarkable. There are no areas of abnormal enhancement on the post contrast images. IMPRESSION: 1. Normal for age brain MR with a few scattered small foci of nonspecific white matter T2 hyperintensity consistent with chronic small vessel ischemic disease. Reviewed, dictated and finalized at location A. IMPRESSION: 1. Normal for age brain MR with a few scattered small foci of nonspecific white matter T2 hyperintensity consistent with chronic small vessel ischemic disease .
== END 2025-08-23 10:43 | disposition home or self-care (01) ==
PROVIDERS: PCP Nurse Practitioner Family; Visit Provider Family Medicine
DX: R51.9 Headache, unspecified (principal); H53.9 Unspecified visual disturbance; R42 Dizziness and giddiness; R53.1 Weakness; H02.401 Unspecified ptosis of right eyelid
CPT/HCPCS: 70553; A9577

== ENCOUNTER 2025-08-26 08:41 | Outpatient (CLI) | payer OTHER, SELFPAY ==
--- NOTE | 2025-08-26 08:52 | ECHO_ITS ---
Patient Info Name: Nakia Foster Age: 75 years : 1950 Gender: Female Ht: 65 in Wt: 133 lbs BSA: 1.67 m2 HR: 65 bpm BP: 146 / 70 mmHg Technical Quality: Good Exam Date: 08/26/2025 9:02 AM Patient Status: O Admit Date: 08/26/2025 Exam Type: CA echo doppler color flow Complete two-dimensional, color flow and Doppler transthoracic echocardiogram is performed. Biology Specimen Technician: Liana Amaro Attending Provider: Fadia Plasencia Summary 1. Complete two-dimensional, color flow and Doppler transthoracic echocardiogram is performed. 2. Left ventricular chamber dimension is normal. 3. Left ventricular systolic function is normal, estimated at 65-70. 4. There is mild concentric increased left ventricular wall thickness. 5. The left ventricular diastolic function is grade I diastolic dysfunction. 6. E/e' 7 is not elevated. 7. There is severe aortic valve sclerosis. 8. There is moderate aortic valve stenosis with a peak velocity of 201 cm/s, mean gradient of 10 mmHg, and aortic valve area of 1.2 cm2. 9. There is trace aortic valve regurgitation. 10. The mitral valve has a mildly calcified annulus. 11. There is trace mitral valve regurgitation. 12. There is mild tricuspid valve regurgitation. 13. No pulmonary hypertension, estimated pulmonary arterial systolic pressure is 32 mmHg. 14. There is trace pulmonic regurgitation. Left Ventricle E/e' 7 is not elevated. Left ventricular chamber dimension is normal. Left ventricular systolic function is normal, estimated at 65-70. There is mild concentric increased left ventricular wall thickness. The left ventricular diastolic function is grade I diastolic dysfunction. Right Ventricle Right ventricular chamber dimension is normal. Right ventricular systolic function is normal and with normal TAPSE 2.1 cm. Left Atria Left atrial chamber dimension is normal. Right Atria Right atrial chamber dimension is normal. Aortic Valve The aortic valve is trileaflet. There is severe aortic valve sclerosis. There is moderate aortic valve stenosis with a peak velocity of 201 cm/s, mean gradient of 10 mmHg, and aortic valve area of 1.2 cm2. There is trace aortic valve regurgitation. Pulmonic Valve There is trace pulmonic regurgitation. Mitral Valve The mitral valve has a mildly calcified annulus. There is no mitral valve stenosis. There is trace mitral valve regurgitation. Tricuspid Valve There is mild tricuspid valve regurgitation. No pulmonary hypertension, estimated pulmonary arterial systolic pressure is 32 mmHg. Pericardium/Pleural There is no pericardial effusion. Inferior Vena Cava Normal inferior vena cava with >50% collapse upon inspiration consistent with normal right atrial pressure, 5 mmHg. Aorta The aortic root size at the sinus of Valsalva is normal. Left Ventricular Outflow Tract Name Value Normal LVOT 2D LVOT Diameter 2.0 cm LVOT Doppler LVOT Peak Velocity 78 cm/s LVOT Peak Gradient 2 mmHg LVOT Mean Gradient 1 mmHg LVOT VTI 18 cm LVOT VTI/AV VTI Ratio 0.4 LVOT Stroke Volume 56 ml LVOT CO 3.7 l/min LVOT CI 2.2 l/min/m2 Pulmonic Valve Name Value Normal RVOT Doppler RVOT Peak Velocity 82 cm/s RVOT Peak Gradient 3 mmHg PV Doppler PV Peak Velocity 97 cm/s PV Peak Gradient 4 mmHg Mitral Valve Name Value Normal MV Diastolic Function MV E Peak Velocity 74 cm/s MV A Peak Velocity 122 cm/s MV E/A 0.6 MV Decel Time (PW) 260 ms Tricuspid Valve Name Value Normal TV Regurgitation Doppler TR Peak Velocity 261 cm/s TR Peak Gradient 23 mmHg Estimated PAP/RSVP RA Pressure 5 mmHg <=5 PA Systolic Pressure 32 mmHg <36 RV Systolic Pressure 32 mmHg <36 TV Annular TDI TV Lateral Loree s' Velocity 13.8 cm/s >=9.5 Aorta Name Value Normal Ascending Aorta Ao Root Diameter (MM) 2.9 cm Ao Root Diam Index (MM) 1.8 cm/m2 Aortic Valve Name Value Normal AV 2D/MM AV Area (Planimetry) 1.1 cm2 AV Doppler AV Peak Velocity 201 cm/s AV Peak Gradient 16 mmHg AV Mean Gradient 10 mmHg AV VTI 48 cm AV Area (Cont Eq VTI) 1.2 cm2 >=3.0 AV Area (Cont Eq Nik) 1.2 cm2 AV DI (Nik) 0.39 AV Regurgitation 2D LVOT Area 3.0 cm2 Ventricles Name Value Normal LV Dimensions 2D/MM IVS Diastolic Thickness (2D) 0.9 cm 0.6-1.0 IVS Diastole Thickness (MM) 0.6 cm 0.6-0.9 LVID Diastole (2D) 3.3 cm 3.8-5.2 LVID Diastole (MM) 4.9 cm 3.8-5.2 LVIW Diastolic Thickness (2D) 1.2 cm 0.6-0.9 LVIW Diastolic Thickness (MM) 0.9 cm 0.6-0.9 LVID Systole (2D) 2.0 cm 2.2-3.5 LVID Systole (MM) 2.9 cm 2.2-3.5 LVOT Diameter 2.0 cm LV Mass (2D Cubed) 102.84 g 67.00-162.00 LV Mass Index (2D Cubed) 62 g/m2 43-95 Relative Wall Thickness (2D) 0.72 <=0.42 LV Mass (MM Cubed) 123.01 g 67.00-162.00 LV Mass Index (MM Cubed) 74 g/m2 43-95 Relative Wall Thickness (MM) 0.36 LV Fractional Shortening/Ejection Fraction 2D/MM LV Fractional Shortening (2D) 40 % 27-45 LV Fractional Shortening (MM) 40 % 27-45 LV EF (MM Teichholz) 71 % LV EF (2D Teichholz) 72 % LV Diastolic Volume (4C MOD) 47 ml LV EF (4C MOD) 61 % LV Diastolic Volume (2C MOD) 42 ml LV EF (2C MOD) 63 % LV Diastolic Volume (BP MOD) 44 ml 46-106 LV Diastolic Volume Index (BP MOD) 27 ml/m2 29-61 LV Systolic Volume (BP MOD) 17 ml 14-42 LV Systolic Volume Index (BP MOD) 10 ml/m2 8-24 LV EF (BP MOD) 62 % 54-74 LV Diastolic Length (4C) 7.1 cm LV Systolic Length (4C) 5.5 cm LV Stroke Volume (4C MOD) 29 ml Atria Name Value Normal LA Dimensions LA Dimension (MM) 3.8 cm 2.7-3.8 LA Volume (4C A-L) 53 ml LA Volume (BP A-L) 49 ml RA Dimensions RA Systolic Major [place] Length (4C) 4.4 cm 2.2-2.8 RA Area (4C) 12.3 cm2 <=18.0 Report Signatures
--- OUTSIDE RECORDS SUMMARY | 2025-08-26 08:58 | XMS_ITS | Clinical Summary ---
Author Organization [facility] Luis Manuel Calhoun Address [address] [place] [address] Care Team Providers Care Engineering Documentation Specialist Name Role Phone Arvind Murrell MD Primary Care Provider [phone] Allergies Active Allergy Reactions Criticality Noted Date [...] 04/04/20 23 Active iron/lysine/vit B comp/zinc (IRON-B USSPIEN-LIUIMW-AQ NC ORAL) Take by mouth. Activ e cannabidiol, CBD, product, for documentation purposes, Take by mouth. Activ e ferrous sulfate (FEOSOL) 300 mg (60 mg iron)/5 mL solution Take 5 mL (300 mg) by mouth daily. 150 mL 3 04/20/20 24 Active Active Problems No known active problems Encounters Date Type Department Care Team Description 07/09/2025 Orders Only [facility] Oncology and Hematology - [address] [place] [address] Zia Mitchell MD Chronic anemia [...] 167.6 cm (5' 6) 10/24/2023 3:10 PM SOIL TESTER Body Mass Index 23.24 10/24/2023 3:10 PM SOIL TESTER Plan of Treatment Upcoming Encounters Date Type Department Care Team (Late st Contact Info) Description 09/04/2025 11:15 AM CDT Office Visit [facility] Oncology and Hematology - [address] [place] [address] Zia Mitchell MD [address] [place] [address] Health Maintenance Due Date Last [...] SCREENING 11/30/2028 , 11/30/2023, 07/08/2022 Insurance MCR Care Teams Engineering Documentation Specialist Relationship Specialty Start Date End Date Arvind Murrell MD [address] [place] [id number] PCP - General Family Practice 10/24/23
--- OUTSIDE RECORDS SUMMARY | 2025-08-26 08:58 | XMS_ITS | Data Portability ---
Author Organization [place] [facility], Main Office Address [address] [place] [address] Care Team Providers Care Silk Trimmer Name Role Phone CHUY STILES Primary Care Provider CHUY STILES Referring Provider [phone] Assessment Encounter Date Assessment Date Assessment LastModified [...] hand 023 11/04/20 23 [email or web address] [facility] [place], [address], [place], [address], 12:06:16 Medication Orders None record ed. Patient TargetsNo targets recorded. Patient InstructionsNo instructions recorded. Reason for Referral None Reported. Results Created Date Observation Date Name Description Value Unit Range Abnormal Flag Note LastModifiedBy Organization Detail LastModifiedTime 04/17/20 21 04/20/2021 XR, hip + pelvi s, unila teral No observ ation record ed. [id number] [facility] [place] [address], [place], [address], 01/12/2023 13:31:29 05/22/20 21 XR, hip, unila teral , 2 or 3 view No observ ation record ed. [id number] [facility] [place] [address], [place], [address], 01/12/2023 13:31:29 05/22/20 21 05/22/2021 US, patricia x, venou s, lower extre mity No observ ation record ed. [id number] [facility] [address], [place], [address], 01/12/2023 13:31:29 07/30/20 21 07/28/2021 XR, shoul true, 2 or more view No observ ation record ed. [id number] Not Available 01/12/2023 13:31:29 11/04/20 23 XR, hand No observ ation record ed. [email or web address] [facility] [place] [address], [place], [address], 11/04/2023 12:06:15 Result Notes None recorded. Problems Name Problem SNOMED Code Status Onset Date Resolution Date Notes Provider Name and Address Organization Details Recorded Time Chondrocal cinosis of knee joint 061018088 Active Not Available [facility] 3 13:29:39 Fracture of neck of femur 1687216 Active Not Available [facility] 3 13:29:39 Closed intertroch anteric fracture 63471018 Active Not Available [facility] 3 13:29:39 Chondromal acia of patella 57409357 Active 2019 Not Available [facility] 3 13:29:39 History of total knee arthroplas ty 3326581062799 Active 2020 Not Available [facility] 3 13:29:39 Low back pain 406718483 Active 2020 Not Available [facility] 3 13:29:39 Knee pain Active 2020 Not Available [facility] 3 13:29:39 Pain of left hand 3657870937707 03 Active 2022 Lesley Navarrete, ATC L null, [facility] 3 11:13:06 Acquired trigger finger of left index finger 6257106889703 04 Active 2022 HUA Arenas [address], [place], [address] , [facility] 3 12:06:31 Acquired trigger finger of left little finger 2481725464634 00 Active 2022 HUA Arenas [address], [place], [address] , [facility] 3 12:06:47 Trigger finger of right hand 8572550826692 9101 Active 2023 VIKAS Mann null, [place] [facility] 11:42:33 Problem Notes None recorded. Procedures Surgical History Date Name Laterality Status Provider Name and Address Organization Details Recorded Time Shoulder completed Lesley Navarrete, ATC L [place] [facility] 11/04/2023 11:11:00 procedure on femur completed Lesley Navarrete, ATC L [place] [facility] 11/04/2023 11:11:38 Carpal tunnel completed Lesley Navarrete, ATC L [place] [facility] 11/04/2023 11:11:49 section completed Lesley Navarrete, ATC L [place] [facility] 11/04/2023 11:12:00 section completed Lesley Navarrete, ATC L [place] [facility] 11/04/2023 11:12:01 section completed Lesley aNvarrete, ATC L [place] [facility] 11/04/2023 11:12:02 section completed Lesley Navarrete, ATC L [place] [facility] 11/04/2023 11:12:04 closed rhinoplasty completed Lesley Navarrete, ATC L [place] [facility] 11/04/2023 11:12:24 release of trigger finger completed Lesley Navarrete, ATC L [place] [facility] 11/04/2023 11:12:33 Imaging Results None recorded. Procedure Notes None recorded. Medical Equipment None Reported. Allergies Allergen ID Allergen Name Allergen Category Reaction Reaction Severity Criticality Documentation Date Start Date Code Code System Note Provider Name and Address Organization Details Recorded Time 95367 Product containin g 3-hydroxy -3-methyl glutaryl- coenzyme A reductase inhibitor (product) medicatio n Not available Not available Not available 01/12/2023 87261 009 SNOMED leg cramp Not Available [facility] [...] administe red by the provider 11/04 completed [facility]: 0003- 0494- 20 Not Available Not Available Not Available baclofen 10 mg tablet TAKE 1 TABLET BY MOUTH DAILY AT BEDTIME 11/04 completed Not Available Not Available Not Available hydrocodone 7.5 mg-acetamin ophen 325 mg tablet 08/22 completed Not Available Not Available Not Available cephalexin 500 mg capsule TAKE 1 CAPSULE BY MOUTH EVERY 6 HOURS 01/24 completed Not Available Not Available Not Available [...] administe red by the provider 11/04 completed [facility]: [phone]- [phone]- 17 Not Available Not Available [...] No t Available Vitals Date Recorded Body height Provider Name an d Address Organization Details Last Updated DateTime 01/25/2024 167.64 cm VIKAS Mann [place] [facility] [place] [facility] [email or web address] [facility] 01/25/2024 11:42:04 Date Recorded Body mass index (BMI) Body height Body weight Provider Name and Address Organization Details Last Updated DateTime 04/17/2021 28.4 kg/m2 167.64 cm 48424.26 g Not Available [facility] 01/12/2023 13:29:32 Date Recorded Body mass index (BMI) Body height Body weight Provider Name and Address Organization Details Last Updated DateTime 05/22/2021 29.2 kg/m2 167.64 cm 05637.22 g Not Available [facility] 01/12/2023 13:29:32 Date Recorded Body mass index (BMI) Body height Body weight Provider Name and Address Organization Details Last Updated DateTime 08/03/2021 28.2 kg/m2 167.64 cm 11094.66 g Not Available [facility] 01/12/2023 13:29:32 Date Recorded Body height Body mass index (BMI) Body weight Provider Name and Address Organization Details Last Updated DateTime 11/04/2023 167.64 cm 25 kg/m2 58572.82 g CASSY Palumbo DE [facility] [place] [facility] [email or web address] [facility] 11/04/2023 11:07:15 Social History None recorded. Functional Status Question Answer Note LastModified by Organization D etails LastModified Time What is your level of alcohol consumption? None [email or web address] Information not available 11/04/2023 Mental Status None recorded. Family History Relationship [...] Relation Family history of malignant neoplasm UNCLE [email or web address] Not available 10/15 11:09:31 Brother Hypertensive disorder [email or web address] Not available 10/15 11:10:03 Sister Hypertensive disorder [email or web address] Not available 10/15 11:10:03 Notes:Hep C Medical History No medical history recorded. Gynecological HistoryNo gynecological history recorded. Obstetrics History GPAL:G 0 P 0 0 0 0 Past Encounters Encounter ID Performer Location Encounter Start Date Encounter Closed Date Diagnosis/Indication Diagnosis SNOMED-CT Code Diagnosis ICD10 Code Diagnosis IMO Codes Diagnosis Note [id number] HUA Arenas [facility] [place] [address] [place] [address] 04/17/2021 00:00:00 04/17/2021 14:53:37 [id number] HUA Arenas [facility] [place] [address] [place] [address] 05/22/2021 00:00:00 05/22/2021 15:24:51 [id number] HUA Arenas [facility] [place] [address] [place] [address] 08/03/2021 00:00:00 08/03/2021 10:04:03 [id number] HUA Arenas [facility] [place] 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 HUA Arenas [address] [facility], [place], [address], [facility] 11/04/2023 12:09:17 OBGyn Episode No OBEpisode recorded.
--- OUTSIDE RECORDS SUMMARY | 2025-08-26 08:58 | XMS_ITS | Clinical Summary ---
Author Organization [facility] Address [address] [place] [address] Care Team Providers Care Electronic Device Monitor Name Role Phone Harshal Mark MD Primary Care Provider [phone] Immunizations Immunization Administration Dates Next Due MODERNA [...] age to complete this topic Care Teams Electronic Device Monitor Relationship Specialty Start Date End Date Harshal Mark MD [address] [address] PCP - General 07/28/11
--- OUTSIDE RECORDS SUMMARY | 2025-08-26 08:58 | XMS_ITS | Patient Health Record ---
Author Organization [facility] Address [address] [place], [place] [address] Care Team Providers Care Color Drum Worker Name Role Phone DAYSI MARTINS Unavailable [phone] Fred Eng Unavailable Unavailable Reason For Referral No Information Medications Medication SIG (Take, Route, Frequency, Duration) Notes Start Date End Date Status Nabumetone 500 MG Oral Tablet ORAL nabumetone 500 MG Oral TabletOriginal Medicationnabumetone 500 MG Oral Tablet *Reorder from [employer] for eRx and Interaction Alerts* 03/08/2013 Active Plan Of Treatment No Information Insurance Providers Payer Name Payer Address Payer Phone Subscriber Number Group Number Insured Name Patient Relationship to Insured Coverage Start Date Coverage End Date [facility] [address] [address] [place] [address] [id number] HOLLIE GRANADO Self - patient is the insured
--- OUTSIDE RECORDS SUMMARY | 2025-08-26 08:58 | XMS_ITS | Clinical Summary ---
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 [id number] Lanny Hall MD IMG DXA PROCEDURES Final Resu lt from Last 3 Months or Most Recently Relevant to Health Maintenance Insurance [address] [id number] [facility] ADVANTAGE CHOICE PPO [facility] ADVANTAGE CHOICE PPO Care Teams Motor Vehicle Emissions Inspector Relationship Specialty [place] [address] [place] [address] PCP - General Orthopedic Surgery 07/20/23
== END 2025-08-26 08:42 | disposition home or self-care (01) ==
PROVIDERS: PCP Nurse Practitioner Family; Visit Provider Nurse Practitioner Family
DX: R01.1 Cardiac murmur, unspecified (principal); I34.0 Nonrheumatic mitral (valve) insufficiency; I35.1 Nonrheumatic aortic (valve) insufficiency; I36.1 Nonrheumatic tricuspid (valve) insufficiency
CPT/HCPCS: 93306